=== PATIENT | male | born 1945 | race Caucasian/White ===

== ENCOUNTER 2021-03-17 12:17 | Outpatient (REF) | payer MEDICARE, SELFPAY ==
[2021-03-17 14:06] LABS: MANUAL DIFF FLAG NO
[2021-03-17 14:18] LABS: Basophils Absolute Auto 0.1 X10*3/uL (0.0-0.2); Basophils Percent Auto 0.7 % (0-2); Eosinophils Percent Auto 0.3 % (0-4); Hematocrit 42.7 % (42-52); Hemoglobin 13.9 g/dl (14.0-18.0); Imm Gran Abs Auto 0.05 X10*3/uL (0.00-0.03); Imm Gran Pct Auto 0.7 % (0.0-0.4); Lymphocytes Absolute Auto 0.9 X10*3/uL (1.2-4.9); Lymphocytes Percent Auto 12.1 % (20-40); Mean Corpuscular HGB Conc 32.6 g/dl (31.0-36.0); Mean Corpuscular Hemoglobin 28.9 pg (27.0-33.0); Mean Corpuscular Volume 88.8 fL (80-98); Mean Platelet Volume 9.7 fL (9.4-12.4); Monocytes Absolute Auto 0.6 X10*3/uL (0.1-1.2); Monocytes Percent Auto 7.6 % (2-11); Neutrophils Percent Auto 78.6 % (45-73); Platelet Count 220 X10*3/uL (160-400); Red Blood Count 4.81 X10*6/uL (4.60-5.80); Red Cell Distribution Width 14.7 % (11.0-16.0); White Blood Count 7.6 X10*3/uL (4.8-10.8)
[2021-03-17 14:29] LABS: Alanine Aminotransferase 19 U/L (0-40); Albumin Level 4.3 g/dL (3.5-5.0); Alkaline Phosphatase 82 U/L (39-117); Anion Gap 15 (12-20); Aspartate Amino Transferase 17 U/L (5-37); Bilirubin Total 0.6 mg/dL (0.0-1.0); Blood Urea Nitrogen 20 mg/dL (9-16); Carbon Dioxide 22 mmol/L (22-29); Chloride 104 mmol/L (96-108); Estimated Glomerular Filt Rate 47; Glucose Random 87 mg/dL (60-115); Sodium 137 mmol/L (135-145); Total Protein 7.3 g/dL (6.5-8.0)
[2021-03-17 14:50] LABS: Ferritin 79 ng/mL (20-250)
== END 2021-03-17 12:18 | disposition home or self-care (01) ==
LOC: HO.HMGCLDS 12:17
PROVIDERS: PCP Internal Medicine; Visit Provider Internal Medicine
DX: I42.9 Cardiomyopathy, unspecified (principal); K92.2 Gastrointestinal hemorrhage, unspecified; N18.9 Chronic kidney disease, unspecified
CPT/HCPCS: 36415; 80053; 82728; 85025

== ENCOUNTER 2021-07-14 10:38 | Outpatient (REF) | payer MEDICARE, SELFPAY ==
[2021-07-14 13:59] LABS: MANUAL DIFF FLAG NO
[2021-07-14 14:05] LABS: Basophils Percent Auto 0.6 % (0-2); Eosinophils Absolute Auto 0.1 X10*3/uL (0.0-0.4); Hematocrit 37.8 % (42-52); Imm Gran Abs Auto 0.07 X10*3/uL (0.00-0.03); Lymphocytes Absolute Auto 0.8 X10*3/uL (1.2-4.9); Lymphocytes Percent Auto 10.9 % (20-40); Mean Corpuscular HGB Conc 31.7 g/dl (31.0-36.0); Mean Corpuscular Hemoglobin 29.6 pg (27.0-33.0); Mean Corpuscular Volume 93.3 fL (80-98); Mean Platelet Volume 9.5 fL (9.4-12.4); Monocytes Absolute Auto 0.6 X10*3/uL (0.1-1.2); Monocytes Percent Auto 8.4 % (2-11); Neutrophils Absolute Auto 5.7 X10*3/uL (2.0-8.3); Neutrophils Percent Auto 78.1 % (45-73); Platelet Count 248 X10*3/uL (160-400); Red Blood Count 4.05 X10*6/uL (4.60-5.80); Red Cell Distribution Width 19.9 % (11.0-16.0); White Blood Count 7.3 X10*3/uL (4.8-10.8)
[2021-07-14 14:26] LABS: Alanine Aminotransferase 47 U/L (0-40); Albumin Level 4.2 g/dL (3.5-5.0); Alkaline Phosphatase 82 U/L (39-117); Anion Gap 18 (12-20); Aspartate Amino Transferase 34 U/L (5-37); Bilirubin Total 2.2 mg/dL (0.0-1.0); Blood Urea Nitrogen 23 mg/dL (9-16); Calcium 9.1 mg/dL (8.4-10.2); Carbon Dioxide 19 mmol/L (22-29); Chloride 106 mmol/L (96-108); Estimated Glomerular Filt Rate 41; Glucose Random 100 mg/dL (60-115); Potassium 4.6 mmol/L (3.3-5.1); Sodium 138 mmol/L (135-145); Total Protein 7.6 g/dL (6.5-8.0)
== END 2021-07-14 10:39 | disposition home or self-care (01) ==
LOC: HO.HMGCLDS 10:38
PROVIDERS: PCP Internal Medicine; Visit Provider Internal Medicine
DX: Z00.01 Encounter for general adult medical examination with abnormal findings (principal); D64.9 Anemia, unspecified; I42.9 Cardiomyopathy, unspecified; I48.91 Unspecified atrial fibrillation; N18.9 Chronic kidney disease, unspecified; T14.8XXA Other injury of unspecified body region, initial encounter
CPT/HCPCS: 36415; 80053; 85025

== ENCOUNTER → 2021-08-24 11:32 | Outpatient (BNVA) | payer MEDICARE, SELFPAY | PROVIDERS: PCP Internal Medicine; Visit Provider Urology | CPT/HCPCS: Q3014 ==

== ENCOUNTER 2022-08-13 08:48 | Outpatient (REF) | payer MEDICARE, SELFPAY ==
--- NOTE | ~2022-08-13 | US_ITS ---
EXAMINATION: US RETROPERITONEAL LIMITED (RENAL ONLY) CLINICAL INFORMATION: Cyst of kidney, acquired. COMPARISON: None TECHNIQUE: Real-time imaging of the kidneys. FINDINGS: RIGHT KIDNEY: 10.4 x 5.2 x 7.2 cm (SAG x AP x TRV). The kidney is normal in size, contour, and echogenicity. Renal cortical thickness is normal. No renal calculi or hydronephrosis. Anechoic simple appearing 6.0 x 5.7 x 6.3 cm right lower pole renal cyst. LEFT KIDNEY: 10.7 x 5.5 x 5.0 cm (SAG x AP x TRV). The kidney is normal in size, contour, and echogenicity. Renal cortical thickness is normal. No renal calculi or hydronephrosis. Small 6 x 4 x 5 mm cyst of the left mid kidney. US/US renal BI IMPRESSION: Simple bilateral renal cysts. No imaging follow-up recommended.
== END 2022-08-13 08:49 | disposition home or self-care (01) ==
LOC: HO.HMGCX 08:48
PROVIDERS: PCP Internal Medicine; Visit Provider Urology
DX: N28.1 Cyst of kidney, acquired (principal)
CPT/HCPCS: 76775

== ENCOUNTER → 2022-08-24 13:11 | Outpatient (BNVA) | payer MEDICARE, SELFPAY | PROVIDERS: PCP Internal Medicine; Visit Provider Urology | DX: N28.1 Cyst of kidney, acquired (principal) | CPT/HCPCS: 99212 ==

== ENCOUNTER 2023-01-15 07:51 | Outpatient (REF) | payer MEDICARE, SELFPAY ==
[2023-01-15 11:39] LABS: MANUAL DIFF FLAG NO
[2023-01-15 11:56] LABS: INTERNATIONAL NORM RATIO 2.4 (0.9-1.1); Prothrombin Time 28.1 SEC (10.0-13.1)
[2023-01-15 12:03] LABS: Basophils Absolute Auto 0.1 X10*3/uL (0.0-0.2); Basophils Percent Auto 1.5 % (0-2); Eosinophils Absolute Auto 0.3 X10*3/uL (0.0-0.4); Eosinophils Percent Auto 5.1 % (0-4); Hematocrit 47.1 % (42.0-52.0); Hemoglobin 15.5 g/dl (14.0-18.0); Imm Gran Abs Auto 0.02 X10*3/uL (0.00-0.03); Imm Gran Pct Auto 0.3 % (0.0-0.4); Lymphocytes Absolute Auto 1.8 X10*3/uL (1.2-4.9); Lymphocytes Percent Auto 26.7 % (20-40); Mean Corpuscular HGB Conc 32.9 g/dl (31.0-36.0); Mean Corpuscular Hemoglobin 29.4 pg (27.0-33.0); Mean Corpuscular Volume 89.2 fL (80.0-98.0); Mean Platelet Volume 10.8 fL (9.4-12.4); Monocytes Absolute Auto 0.6 X10*3/uL (0.1-1.2); Monocytes Percent Auto 8.3 % (2-11); Neutrophils Absolute Auto 3.9 x10*3/uL (2.0-8.3); Neutrophils Percent Auto 58.1 % (45-73); Platelet Count 204 X10*3/uL (160-400); Red Blood Count 5.28 X10*6/uL (4.60-5.80); Red Cell Distribution Width 14.4 % (11.0-16.0); White Blood Count 6.7 X10*3/uL (4.8-10.8)
[2023-01-15 13:04] LABS: Alanine Aminotransferase 56 U/L (0-40); Albumin Level 3.9 g/dL (3.5-5.0); Alkaline Phosphatase 84 U/L (39-117); Anion Gap 14 (12-20); Aspartate Amino Transferase 48 U/L (5-37); Blood Urea Nitrogen 20 mg/dL (9-16); Carbon Dioxide 23 mmol/L (22-29); Chloride 106 mmol/L (96-108); Cholesterol 170 mg/dL; Estimated Glomerular Filt Rate 33; Glucose Fasting 111 mg/dL (60-99); HDL Cholesterol 49 mg/dL; LDL Cholesterol Calculated 100 mg/dl; Potassium 4.2 mmol/L (3.3-5.1); Sodium 139 mmol/L (135-145); Total Protein 6.8 g/dL (6.5-8.0); Triglycerides 108 mg/dL
== END 2023-01-15 07:52 | disposition home or self-care (01) ==
LOC: HO.HMGCLDS 07:51
PROVIDERS: Absent Provider Physician Assistant Medical; PCP Internal Medicine; Visit Provider Internal Medicine
DX: D64.9 Anemia, unspecified (principal); E78.9 Disorder of lipoprotein metabolism, unspecified; I42.9 Cardiomyopathy, unspecified; I48.91 Unspecified atrial fibrillation; E78.2 Mixed hyperlipidemia; N18.9 Chronic kidney disease, unspecified; Z79.01 Long term (current) use of anticoagulants
CPT/HCPCS: 36415; 80053; 80061; 85025; 85610

== ENCOUNTER 2023-02-18 08:53 | Outpatient (REF) | payer MEDICARE, SELFPAY ==
[2023-02-18 12:24] LABS: Alanine Aminotransferase 76 U/L (0-40); Anion Gap 12 (12-20); Aspartate Amino Transferase 57 U/L (5-37); Blood Urea Nitrogen 20 mg/dL (9-16); Calcium 9.2 mg/dL (8.4-10.2); Carbon Dioxide 26 mmol/L (22-29); Chloride 105 mmol/L (96-108); Cholesterol 172 mg/dL; Estimated Glomerular Filt Rate 39; Glucose Random 109 mg/dL (60-115); HDL Cholesterol 49 mg/dL; LDL Cholesterol Calculated 102 mg/dl; Potassium 4.3 mmol/L (3.3-5.1); Sodium 139 mmol/L (135-145); Triglycerides 107 mg/dL
[2023-02-18 12:42] LABS: Thyroid Stimulating Hormone 3.04 uIU/mL (0.32-4.0)
== END 2023-02-18 08:54 | disposition home or self-care (01) ==
LOC: HO.HMGCLDS 08:53
PROVIDERS: Absent Provider Physician Assistant Medical; PCP Internal Medicine; Visit Provider Internal Medicine
DX: I48.91 Unspecified atrial fibrillation (principal); E78.2 Mixed hyperlipidemia
CPT/HCPCS: 36415; 80048; 80061; 84443; 84450; 84460

== ENCOUNTER 2023-07-19 10:40 | Outpatient (AMB) | payer MEDICARE, SELFPAY ==
--- NOTE | 2023-07-19 10:43 | A.OFFPC_ITS ---
Vital Signs 07/19/23 10:45 07/19/23 11:13 Height 5 ft 4 in Weight 225 lb 4 oz BMI 38.7 BP 110/32 L 120/42 L Blood Pressure Location Rt brachial Rt brachial Position Sitting Pulse 57 Pulse Source Pulse Oximeter Pulse Oximetry (%) 96 Oxygen Delivery Method Room Air Intake Visit Reasons: Annual Physical Allergies No Known Allergies [No Known Allergies*] Allergy (Mild, Verified 07/19/23 10:43) NONE Medication List - Last Reconciled 07/19/23 by Julissa Dooley MD amiodarone 200 mg PO DAILY atorvastatin 40 mg PO BEDTIME diltiazem HCl 180 mg PO DAILY furosemide 20 mg PO BID lisinopril 2.5 mg PO DAILY meclizine 12.5 mg PO DAILY PRN metoprolol succinate ER 100 mg PO DAILY omeprazole 20 mg PO DAILY 90 days spironolactone 12.5 mg PO DAILY warfarin 5 mg PO Q OTHER DAY Tobacco use date assessed: 07/19/23 Fall risk assessment: No Falls in past year Last assessed Fall Risk: 07/19/23 Dental Screening Dental Screen Date: 07/19/23 Did you have a dental visit in the last 12 months?: No Did you have a dental problem in the last 6 months where you did not have access to dental care?: No Was dental information given to patient?: Patient has dentist HPI Annual Physical HPI Details Patient is a 78-year-old male came in today for physical exam appointment today. Patient has appointment for renal ultrasound in July patient is seeing Dr. Hand for that I see that patient has lost about 40 lb since last 2 years he is trying to lose weight gradually. Today on physical examination patient was able to complete tandem walk as well which he failed last year Patient has a history of Chronic kidney disease stage 3 Hypertension Atrial fibrillation Ischemic cardiomyopathy Patient sees other providers Cardiology: [facility] Nephrology: Patient is seeing Dr. 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 Perry for melanoma Urologist: Dr. [place]/Dr. Hand [facility] INR managed by Cardiology All labs done through Cardiology or Nephrology office, and once a year through PCP office He had colonoscopy through Dr. Carty due for colonoscopy in 3 yrs Currently his BMI is 38.7, patient is losing weight gradually He walks with the help of cane, balance is good patient was able to pass Romberg But failed tendem walk Medication list reviewed Labs in my chart is from February of this year, patient does have elevated LFTs but stable PFSH Medical History History of GI bleed Social History Housing: House Alcohol intake: former Patient Tobacco Use Status: Former Tobacco user Quit Date: 1972 e-Cigarette/Vaping Use: Never Used Current occupational status: retired Cognitive needs: No Hearing needs: No Vision needs: Yes Questionnaire PHQ-9 Over the last 2 weeks, how often have you been bothered by any of the following problems? 1. Little interest or pleasure in doing things: not at all 2. Feeling down, depressed, or hopeless: not at all 3. Trouble falling or staying asleep, or sleeping too much: not at all 4. Feeling tired or having little energy: not at all 5. Poor appetite or overeating: not at all 6. Feeling bad about yourself - or that you are a failure or have let yourself or your family down: not at all 7. Trouble concentrating on things, such as reading the newspaper or watching television: not at all 8. Moving or speaking so slowly that other people could have noticed. Or the opposite - being so fidgety or restless that you have been moving around a lot more than usual: not at all 9. Thoughts that you would be better off or of hurting yourself in some way: not at all Total score: 0 Depression Screening Interpretation: Negative 80793 - PHQ-9 Billing: Yes Source: Developed by Drs. Shane Eid, Emily Knox, Alessandro Gonzalez and colleagues, with an educational patricia from [employer]. Thrive Questionnaire Date Thrive assessed: 07/19/23 I am a: Patient What is your living situation today?: I have a steady place to live Within the past 12 months, did the food you bought not last and you didn't have the money to get more?: Never true Within the past 12 months, did you worry whether your food would run out before you got money to buy more?: Never true Do you have trouble paying for medicines?: No Do you have trouble getting transportation to medical appointments?: No Do you have trouble paying your heating and electricity bill?: No Do you have trouble taking care of your child, family member or friend?: No Do you have trouble with day-to-day activities such as bathing, preparing meals, shopping, managing finances, etc.?: No Are you currently unemployed and looking for a job?: No Are you interested in more education?: No AUDIT C Alcohol Use Questionnaire (AUDIT-C) 1. How often do you have a drink containing alcohol?: Never 3. How often do you have six or more drinks on one occasion?: Never Total Score: 0 Score Reviewed/Action Taken: Yes DYLLAN-7 AMB Questionnaire DYLLAN-7 Date DYLLAN - 7 assessed: 07/19/23 Feeling nervous, anxious, or on edge: 0 = Not at all Not being able to stop or control worryin = Not at all Worrying too much about different things: 0 = Not at all Trouble relaxin = Not at all Being so restless that it is hard to sit still: 0 = Not at all Becoming easily annoyed or irritable: 0 = Not at all Feeling afraid as if something awful might happen: 0 = Not at all Total YDLLAN-7 score (0-4 normal; 5-9 mild; 10-14 moderate; 15-21 severe): 0 Source: Developed by Drs. Shane Eid, Emily Knox, Alessandro Gonzalez and colleagues, with an educational patricia from [employer]. DYLLAN-7 Assessment Billing DYLLAN-7 Assessment Tool: DYLLAN-7 Assessment [id number] Review of Systems Const Denies chills, Denies fever(s) and Denies headache(s) Eyes Denies blurry vision ENT Denies headache(s), Denies nasal discharge, Denies nasal obstruction, Denies odynophagia and Denies sinus pain Card Denies chest pain at rest and Denies chest pain with activity Resp Denies cough and Denies hemoptysis GI Denies diarrhea, Denies odynophagia, Denies vomiting and Denies hematemesis Reports as per HPI Musc Denies abnormal gait Skin/Breast Reports as per HPI Neuro Denies Neuro-related abnormal movements, Denies Abnormal speech present, Denies abnormal gait and Denies headache(s) Psych Denies mood swings and Denies paranoia Endo Reports as per HPI Edson/Lymph Reports as per HPI Aller/Immun Reports as per HPI Physical exam (Primary Care) Vital Signs: Last Vital Signs Pulse 57 07/19/23 10:45 BP 120/42 L 07/19/23 11:13 Pulse Ox 96 07/19/23 10:45 Oxygen Delivery Method Room Air 07/19/23 10:45 BMI result Body Mass Index 38.7 Tobacco/Smoking Status: Tobacco use Status Tobacco use date assessed 07/19/23 07/19/23 10:51 Patient Tobacco Use Status Former Tobacco user 07/19/23 10:51 e-Cigarette/Vaping Use Never Used 07/19/23 10:51 Depression Screening Interpretation: Negative Thrive Assessment: Date of Thrive Assessment Date Thrive assessed 07/17/22 07/19/23 10:51 Const General: cooperative, comfortable and no acute distress Orientation/consciousness: patient oriented x3 HENMT Head: Yes normocephalic and Yes atraumatic Eyes General: appearance normal, both eyes and all related structures Pupils: Equal, round and reactive pupils present EOM: EOMs intact bilaterally Neck Neck: Yes supple and No lymphadenopathy Thyroid: Thyroid normal Lymphatic: no lymphadenopathy noted Resp Effort & Inspection: normal respiratory effort and able to speak in complete sentences Auscultation: clear to auscultation bilaterally Cardio Heart sounds: S1 normal heart sound present and S2 normal heart sound present GI Palpation (GI): Soft to palpation and nontender Auscultation: normal bowel sounds General: Yes no CVA tenderness Back/Spine/Pelvis Back: no CVA tenderness Skin General skin exam: elasticity normal and turgor normal Neuro General: patient oriented x3 and gait normal Cranial nerves: Yes Equal, round and reactive pupils present Speech: No Abnormal speech present Coordination: tandem gait normal and Romberg test negative Extrem General: Yes normal exam except as noted and No edema Assessment and Plan Assessment & Plan (1) Encounter for general adult medical examination with abnormal findings: Code(s): Z00.01 - Encounter for general adult medical examination with abnormal findings (2) Chronic kidney disease, stage 4 (severe): Code(s): N18.4 - Chronic kidney disease, stage 4 (severe) (3) Lipid disorder: Code(s): E78.9 - Disorder of lipoprotein metabolism, unspecified (4) Cardiomyopathy: Code(s): I42.9 - Cardiomyopathy, unspecified Qualifiers: Cardiomyopathy type: other Qualified Code(s): I42.8 - Other cardiomyopathies Plan Patient is a 78-year-old male came in today for physical exam appointment today. Patient has appointment for renal ultrasound in July patient is seeing Dr. Hand for that I see that patient has lost about 40 lb since last 2 years he is trying to lose weight gradually. Today on physical examination patient was able to complete tandem walk as well which he failed last year Patient has a history of Chronic kidney disease stage 3 Hypertension Atrial fibrillation Ischemic cardiomyopathy Patient sees other providers Cardiology: Patient is seeing Dr. Roth [facility] Nephrology: Patient is seeing Dr. 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 Perry for melanoma Urologist: Dr. [place]/Dr. Hand [facility] INR managed by Cardiology All labs done through Cardiology or Nephrology office, and once a year through PCP office He had colonoscopy through Dr. Carty due for colonoscopy in 3 yrs Currently his BMI is 38.7, patient is losing weight gradually He walks with the help of cane, balance is good patient was able to pass Romberg But failed tendem walk Medication list reviewed Labs in my chart is from February of this year, patient does have elevated LFTs but stable Orders: Orders Vitamin B12 Today E78.9 - Disorder of lipoprotein metabolism, unspecified, I42.9 - Cardiomyopathy, unspecified, N18.4 - Chronic kidney disease, stage 4 (severe), Z00.01 - Encounter for general adult medical examination with abnormal findings Complete Blood Count Auto Diff Today E78.9 - Disorder of lipoprotein metabolism, unspecified, I42.9 - Cardiomyopathy, unspecified, N18.4 - Chronic kidney disease, stage 4 (severe), Z00.01 - [facility] Comprehensive [place]. Panel Fast Today E78.9 - Disorder of lipoprotein metabolism, unspecified, I42.9 - Cardiomyopathy, unspecified, N18.4 - Chronic kidney disease, stage 4 (severe), Z00.01 - Encounter for general adult medical examination with abnormal findings Lipid Panel Today E78.9 - Disorder of lipoprotein metabolism, unspecified, I42.9 - Cardiomyopathy, unspecified, N18.4 - Chronic kidney disease, stage 4 (severe), Z00.01 - Encounter for general adult medical examination with abnormal findings Vitamin D 25-OH (D2 and D3) Today E78.9 - Disorder of lipoprotein metabolism, unspecified, I42.9 - Cardiomyopathy, unspecified, N18.4 - Chronic kidney disease, stage 4 (severe), Z00.01 - Encounter for general adult medical examination with abnormal findings Coding Level of Care Code Est Pt Prev Care >65y(61133) Diagnoses Encounter for general adult medical examination with abnormal findings Z00.01 Chronic kidney disease, stage 4 (severe) N18.4 Lipid disorder E78.9 Other cardiomyopathy I42.8 Cardiomyopathy type: other Additional Codes DYLLAN-7 Assessment Billing - DYLLAN-7 Assessment Tool: DYLLAN-7 Assessment [id number] ([id number])
[2023-07-19 10:45] VITALS: BP 110/32; PULSE 57; O2SAT 96; BMI 38.7
[2023-07-19 11:13] VITALS: BP 120/42
== END 2023-07-19 11:15 | disposition home or self-care (01) ==
PROVIDERS: Visit Provider Internal Medicine
DX: Z00.00 Encounter for general adult medical examination without abnormal findings (principal); N18.4 Chronic kidney disease, stage 4 (severe); E78.9 Disorder of lipoprotein metabolism, unspecified; I42.8 Other cardiomyopathies
CPT/HCPCS: 99397

== ENCOUNTER 2023-08-14 08:12 | Outpatient (REF) | payer MEDICARE, SELFPAY ==
--- NOTE | ~2023-08-14 | US_ITS ---
EXAMINATION: US RETROPERITONEAL LIMITED (RENAL ONLY) CLINICAL INFORMATION: Cyst of kidney, acquired. COMPARISON: Renal ultrasound 08/13/2022. TECHNIQUE: Real-time imaging of the kidneys. FINDINGS: RIGHT KIDNEY: 10.2 x 5.3 x 5.0 cm (SAG x AP x TRV). The kidney is normal in size, contour, and echogenicity. Renal cortical thickness is normal. No renal calculi or hydronephrosis. There is a 6.8 x 5.9 x 6.4 cm cyst lower pole right kidney. LEFT KIDNEY: 10.6 x 5.2 x 4.8 cm (SAG x AP x TRV). The kidney is normal in size, contour, and echogenicity. Renal cortical thickness is normal. No calculi or focal parenchymal lesions. No hydronephrosis. US/US renal BI IMPRESSION: 6.8 x 5.9 x 6.4 cm cyst lower pole right kidney previously measured 6 x 5.7 x 6.3 cm. The previously noted subcentimeter cyst left kidney is no longer seen. No renal calculi or hydronephrosis.
[2023-08-14 11:43] LABS: MANUAL DIFF FLAG NO
[2023-08-14 12:07] LABS: Basophils Absolute Auto 0.1 X10*3/uL (0.0-0.2); Basophils Percent Auto 0.9 % (0-2); Eosinophils Percent Auto 0.2 % (0-4); Hematocrit 44.5 % (42.0-52.0); Hemoglobin 14.6 g/dl (14.0-18.0); Imm Gran Abs Auto 0.02 X10*3/uL (0.00-0.03); Imm Gran Pct Auto 0.4 % (0.0-0.4); Lymphocytes Absolute Auto 1.2 X10*3/uL (1.2-4.9); Lymphocytes Percent Auto 22.2 % (20-40); Mean Corpuscular HGB Conc 32.8 g/dl (31.0-36.0); Mean Corpuscular Hemoglobin 29.6 pg (27.0-33.0); Mean Corpuscular Volume 90.1 fL (80.0-98.0); Mean Platelet Volume 10.7 fL (9.4-12.4); Monocytes Absolute Auto 0.5 X10*3/uL (0.1-1.2); Monocytes Percent Auto 8.8 % (2-11); Neutrophils Absolute Auto 3.7 x10*3/uL (2.0-8.3); Neutrophils Percent Auto 67.5 % (45-73); Platelet Count 189 X10*3/uL (160-400); Red Blood Count 4.94 X10*6/uL (4.60-5.80); Red Cell Distribution Width 14.2 % (11.0-16.0); White Blood Count 5.5 X10*3/uL (4.8-10.8)
[2023-08-14 12:31] LABS: Alanine Aminotransferase 46 U/L (0-40); Albumin Level 3.8 g/dL (3.5-5.0); Alkaline Phosphatase 69 U/L (39-117); Aspartate Amino Transferase 44 U/L (5-37); Bilirubin Direct 0.4 mg/dL (0.0-0.5); Bilirubin Total 1.1 mg/dL (0.0-1.0); Total Protein 7.1 g/dL (6.5-8.0)
[2023-08-14 12:34] LABS: Alanine Aminotransferase 46 U/L (0-40); Albumin Level 3.8 g/dL (3.5-5.0); Alkaline Phosphatase 67 U/L (39-117); Anion Gap 13 (12-20); Aspartate Amino Transferase 45 U/L (5-37); Bilirubin Total 1.1 mg/dL (0.0-1.0); Blood Urea Nitrogen 26 mg/dL (9-16); Calcium 9.4 mg/dL (8.4-10.2); Carbon Dioxide 26 mmol/L (22-29); Chloride 104 mmol/L (96-108); Cholesterol 173 mg/dL (<200); Estimated Glomerular Filt Rate 45; Glucose Fasting 97 mg/dL (60-99); HDL Cholesterol 51 mg/dL (>40); LDL Cholesterol Calculated 102 mg/dL (<100); Potassium 4.4 mmol/L (3.3-5.1); Sodium 139 mmol/L (135-145); Total Protein 7.2 g/dL (6.5-8.0); Triglycerides 102 mg/dL (<150)
[2023-08-14 12:56] LABS: Vitamin B12 512 pg/mL (200-900)
[2023-08-18 16:59] LABS: Vitamin D 25-OH, D2 <4 ng/mL; Vitamin D 25-OH, D3 29 ng/mL; Vitamin D 25-OH, Total 29 ng/mL (30-100)
== END 2023-08-14 08:13 | disposition home or self-care (01) ==
LOC: HO.HMGCX 08:12
PROVIDERS: Physician Assistant Medical; PCP Internal Medicine; Visit Provider Urology
DX: Z00.01 Encounter for general adult medical examination with abnormal findings (principal); N18.4 Chronic kidney disease, stage 4 (severe); E78.9 Disorder of lipoprotein metabolism, unspecified; I42.9 Cardiomyopathy, unspecified; N28.1 Cyst of kidney, acquired; E78.2 Mixed hyperlipidemia
CPT/HCPCS: 36415; 76775; 80053; 80061; 80076; 82248; 82306; 82607; 85025

== ENCOUNTER 2023-08-23 08:36 | Outpatient (AMB) | payer MEDICARE, SELFPAY ==
--- NOTE | 2023-08-23 08:40 | MHC.OFFVIS ---
Intake Intake Visit Reasons: 1YR US(set) Intake Note: Patient is Present for Telephone Follow Up Urology Med: None Antibiotic Allergy:None Blood Thinner: Warfarin Pharamcy: [employer] [facility] Allergies No Known Allergies [No Known Allergies*] Allergy (Mild, Verified 07/19/23 10:43) NONE HPI HPI Comments History of Present Illness Details Tee is a pleasant male. He is a patient of Dr. Dooley. He is seen for the following urologic conditions - lower urinary tract symptoms - renal cyst Telemedicine Evaluation 15 min Consultation [facility] Video attempted Stable renal cyst Effective emptying Follow PRN Renal cyst Followed for renal cyst Imaging - 07/11 CT right 5 cm renal cyst, 3 mm stone in gallbladder - 07/12 U/S right renal cyst stable - 07/13 Renal US right renal cyst stable Urinating well Good stream and effective emptying PRN PFSH Medical History History of GI bleed Social History Housing: House Alcohol intake: former Patient Tobacco Use Status: Former Tobacco user Quit Date: 1972 e-Cigarette/Vaping Use: Never Used Current occupational status: retired Cognitive needs: No Hearing needs: No Vision needs: Yes Review of Systems Const All systems reviewed & are unremarkable except as noted in HPI and below Reports no additional complaints Resp Reports no additional complaints GI Reports no additional complaints Reports as per HPI Musc Reports no additional complaints Physical Exam Telemedicine evaluation Appropriate responses Regular breathing rate and rhythm HEENT Head: Yes normal to inspection Ears: hearing grossly normal bilaterally Eyes General: appearance normal, both eyes and all related structures Neck Neck: Yes normal visual inspection Chest Chest palpation & inspection: normal inspection of the chest Resp Effort & Inspection: normal respiratory effort and able to speak in complete sentences Assessment & Plan Assessment & Plan (1) Renal cyst: Comment: Left 5.5 cm Code(s): N28.1 - Cyst of kidney, acquired Plan PRN Patient Instructions: Imaging studies, laboratory and physical exam results were discussed and reviewed in detail. No major barriers to patient understanding were identified. An opportunity to ask questions regarding the treatment plan was provided. All questions were answered. The patient expressed understanding and agreement with the above treatment plan. The patient is aware they should contact our office by phone for worsening of their current condition or the appearance of new urologic symptoms. Compliance is encouraged with any medications and followup testing that is ordered. It is a privilege to participate in the urologic care of your patient. If you have any questions or concerns regarding treatment for the above conditions, or other urologic issues, please do not hesitate to contact me. The office telephone contact is [phone]. This note is constructed using voice recognition software. While every effort has been made to ensure accuracy sales administrator errors may have been included. Yours sincerely, Dr Preston Hand MD, [facility] - Urology Providers of Expert, Compassionate Care for the Genitourinary System Telehealth Telehealth Location of provider rendering services: practice address Location of patient: address on file Patient Identification confirmed using: Name, : Yes Telehealth method: video Patient verbally consented to treatment: Yes Patient verbally consented to billing insurance company: Yes Patient informed of any privacy concerns related to visit: Yes Coding Level of Care Code Tele Est Pt Level 3 (63411) Diagnoses Renal cyst N28.1
== END 2023-08-23 09:23 | disposition home or self-care (01) ==
LOC: HO.HUSH 08:36
PROVIDERS: PCP Internal Medicine; Visit Provider Urology
DX: N28.1 Cyst of kidney, acquired (principal)
CPT/HCPCS: 99213

== ENCOUNTER → 2023-08-23 08:36 | Outpatient (BNVA) | payer MEDICARE, SELFPAY | PROVIDERS: PCP Internal Medicine; Visit Provider Urology ==

== ENCOUNTER 2024-08-05 10:19 | Outpatient (AMB) | payer MEDICARE, SELFPAY ==
[2024-08-05 10:22] VITALS: BP 130/54; PULSE 64; O2SAT 96; BMI 43.1
--- NOTE | 2024-08-05 10:22 | MHC.PC.OV ---
Vital Signs 08/05/24 10:22 Height 5 ft 4 in Weight 251 lb 4 oz BMI 43.1 BP 130/54 L Blood Pressure Location Rt brachial Position Sitting Pulse 64 Pulse Source Pulse Oximeter Pulse Oximetry (%) 96 Oxygen Delivery Method Room Air Intake Visit Reasons: Annual PE Allergies No Known Allergies [No Known Allergies*] Allergy (Mild, Verified 08/05/24 10:22) NONE Medication List - Last Reconciled 08/05/24 by Julissa Dooley MD amiodarone 200 mg PO DAILY atorvastatin 40 mg PO BEDTIME diltiazem HCl CD 180 mg PO DAILY furosemide 20 mg PO BID lisinopril 2.5 mg PO DAILY meclizine 12.5 mg PO DAILY PRN metoprolol succinate ER 100 mg PO DAILY omeprazole 20 mg PO DAILY 90 days spironolactone 12.5 mg PO DAILY warfarin 5 mg PO Q OTHER DAY Tobacco use date assessed: 08/05/24 Last assessed Fall Risk: 08/05/24 Dental Screening Dental Screen Date: 08/05/24 Did you have a dental visit in the last 12 months?: Yes Did you have a dental problem in the last 6 months where you did not have access to dental care?: No Was dental information given to patient?: Yes HPI Annual PE HPI Details Patient is a 79-year-old male came in today for physical exam appointment today. Nephropathy, patient is seeing Dr. Hand last time he had labs last year his kidney function has improved slightly Has gained weight back since last year BMI is 43.1 patient is morbidly obese Patient has a history of Chronic kidney disease stage 3 Hypertension Atrial fibrillation Ischemic cardiomyopathy Patient sees other providers [facility]: [facility] Nephrology: Patient is seeing Dr. Fowler at [facility] office Director Pharmacology: Dr. Perry for melanoma Urologist: Dr. Birmingham/Dr. Hand [facility] INR managed by Cardiology All labs done through Cardiology or Nephrology office, and once a year through PCP office He had colonoscopy through Dr. Machelle rouse for colonoscopy in 2 yrs Medication list reviewed Lab order placed to be done today Follow-up 1 year physical exam, no medication from PCP office COUNTS INCLUDE 234 BEDS AT THE [facility] Medical History History of GI bleed Social History Housing: House Alcohol intake: former Patient Tobacco Use Status: Former Tobacco user e-Cigarette/Vaping Use: Never Used Current occupational status: retired Cognitive needs: No Hearing needs: No Vision needs: Yes Questionnaire PHQ-9 Over the last 2 weeks, how often have you been bothered by any of the following problems? 1. Little interest or pleasure in doing things: not at all 2. Feeling down, depressed, or hopeless: not at all 3. Trouble falling or staying asleep, or sleeping too much: not at all 4. Feeling tired or having little energy: not at all 5. Poor appetite or overeating: not at all 6. Feeling bad about yourself - or that you are a failure or have let yourself or your family down: not at all 7. Trouble concentrating on things, such as reading the newspaper or watching television: not at all 8. Moving or speaking so slowly that other people could have noticed. Or the opposite - being so fidgety or restless that you have been moving around a lot more than usual: not at all 9. Thoughts that you would be better off or of hurting yourself in some way: not at all Total score: 0 Depression Screening Interpretation: Negative Depression Screening Done: Yes 87793 - PHQ-9 Billing: Yes Source: Developed by Drs. Shane Eid, Emily Knox, Alessandro Gonzalez and colleagues, with an educational patricia from [employer]. Thrive Questionnaire Date Thrive assessed: 08/05/24 I am a: Patient What is your living situation today?: I have a steady place to live Within the past 12 months, did the food you bought not last and you didn't have the money to get more?: Never true Within the past 12 months, did you worry whether your food would run out before you got money to buy more?: Never true Do you have trouble paying for medicines?: No Do you have trouble getting transportation to medical appointments?: No Do you have trouble paying your heating and electricity bill?: No Do you have trouble taking care of your child, family member or friend?: No Do you have trouble with day-to-day activities such as bathing, preparing meals, shopping, managing finances, etc.?: No Are you currently unemployed and looking for a job?: No Are you interested in more education?: No Please select the resources that you would like help with: None Currently or been in a relationship where the following occur: No concerns reported THRIVE Score: 0 AUDIT C Alcohol Use Questionnaire (AUDIT-C) 1. How often do you have a drink containing alcohol?: Never 3. How often do you have six or more drinks on one occasion?: Never Total Score: 0 Score Reviewed/Action Taken: Yes DYLLAN-7 AMB Questionnaire DYLLAN-7 Date DYLLAN - 7 assessed: 08/05/24 Feeling nervous, anxious, or on edge: 0 = Not at all Not being able to stop or control worryin = Not at all Worrying too much about different things: 0 = Not at all Trouble relaxin = Not at all Being so restless that it is hard to sit still: 0 = Not at all Becoming easily annoyed or irritable: 0 = Not at all Feeling afraid as if something awful might happen: 0 = Not at all Total DYLLAN-7 score (0-4 normal; 5-9 mild; 10-14 moderate; 15-21 severe): 0 Source: Developed by Drs. Shane Eid, Emily Knox, Alessandro Gonzalez and colleagues, with an educational patricia from [employer]. DYLLAN-7 Assessment Billing DYLLAN-7 Assessment Tool: DYLLAN-7 Assessment [id number] Review of Systems Const Denies chills, Denies fever(s) and Denies headache(s) Eyes Denies blurry vision ENT Denies headache(s), Denies nasal discharge, Denies nasal obstruction, Denies odynophagia and Denies sinus pain Card Denies chest pain at rest and Denies chest pain with activity Resp Denies cough and Denies hemoptysis GI Denies odynophagia, Denies vomiting and Denies hematemesis Reports as per HPI Skin/Breast Reports as per HPI Neuro Denies Neuro-related abnormal movements, Denies Abnormal speech present, Denies headache(s) and Denies Sensory deficit (Neuro) Psych Denies mood swings and Denies paranoia Endo Reports as per HPI Edson/Lymph Reports as per HPI Aller/Immun Reports as per HPI Physical exam (Primary Care) Vital Signs: Last Vital Signs Pulse 64 08/05/24 10:22 BP 130/54 L 08/05/24 10:22 Pulse Ox 96 08/05/24 10:22 Oxygen Delivery Method Room Air 08/05/24 10:22 BMI result Body Mass Index 43.1 Tobacco/Smoking Status: Tobacco use Status Tobacco use date assessed 08/05/24 08/05/24 10:29 Patient Tobacco Use Status Former Tobacco user 08/05/24 10:29 e-Cigarette/Vaping Use Never Used 08/05/24 10:29 PHQ-9: PHQ-9 Score PHQ-9: Total score 0 08/05/24 10:34 Depression Screening Interpretation: Negative Thrive Assessment: Date of Thrive Assessment Date Thrive assessed 08/05/24 08/05/24 10:29 Currently or been in a relationship where the following occur: No concerns reported Const General: cooperative, comfortable and no acute distress Orientation/consciousness: patient oriented x3 HENMT Head: Yes normocephalic and Yes atraumatic Eyes Pupils: Equal, round and reactive pupils present EOM: EOMs intact bilaterally Neck Neck: Yes supple and No lymphadenopathy Thyroid: Thyroid normal Lymphatic: no lymphadenopathy noted Resp Effort & Inspection: normal respiratory effort and able to speak in complete sentences Auscultation: clear to auscultation bilaterally Cardio Heart sounds: S1 normal heart sound present and S2 normal heart sound present GI Palpation (GI): Soft to palpation and nontender Auscultation: normal bowel sounds General: Yes no CVA tenderness Back/Spine/Pelvis Back: no CVA tenderness Skin General skin exam: elasticity normal and turgor normal Neuro Other: Uses cane as ambulatory aid General: patient oriented x3 and gait normal Cranial nerves: Yes Equal, round and reactive pupils present Speech: No Abnormal speech present Sensory Exam: No Sensory deficit (Neuro) Coordination: Romberg test negative Extrem General: Yes normal exam except as noted and No edema Coding Level of Care Code Est Pt Level 3 (49209) Est Pt Prev Care >65y(24556) Diagnoses Encounter for general adult medical examination with abnormal findings Z00.01 Other cardiomyopathy I42.8 Cardiomyopathy type: other Anemia in other chronic diseases classified elsewhere D63.8 Anemia type: other cause Other causes of anemia: chronic disease, other Chronic kidney disease, stage 4 (severe) N18.4 Lipid disorder E78.9 Morbid obesity due to excess calories E66.01 Additional Codes DYLLAN-7 Assessment Billing - DYLLAN-7 Assessment Tool: DYLLAN-7 Assessment 16215 ([id number]) Assessment & Plan Assessment & Plan (1) Encounter for general adult medical examination with abnormal findings: Code(s): Z00.01 - Encounter for general adult medical examination with abnormal findings Category: Medical (2) Cardiomyopathy: Code(s): I42.9 - Cardiomyopathy, unspecified Category: Medical Qualifiers: Cardiomyopathy type: other Qualified Code(s): I42.8 - Other cardiomyopathies (3) Anemia: Code(s): D64.9 - Anemia, unspecified Category: Medical Qualifiers: Anemia type: other cause Other causes of anemia: chronic disease, other Qualified Code(s): D63.8 - Anemia in other chronic diseases classified elsewhere (4) Chronic kidney disease, stage 4 (severe): Code(s): N18.4 - Chronic kidney disease, stage 4 (severe) Category: Medical (5) Lipid disorder: Code(s): E78.9 - Disorder of lipoprotein metabolism, unspecified Category: Medical (6) Morbid obesity due to excess calories: Code(s): E66.01 - Morbid (severe) obesity due to excess calories Category: Medical Plan Patient is a 79-year-old male came in today for physical exam appointment today. Nephropathy, patient is seeing Dr. Hand last time he had labs last year his kidney function has improved slightly Has gained weight back since last year BMI is 43.1 patient is morbidly obese Patient has a history of Chronic kidney disease stage 3 Hypertension Atrial fibrillation Ischemic cardiomyopathy Patient sees other providers Cardiology: Patient is seeing Dr. Roth [facility] Nephrology: Patient is seeing Dr. Fowler at [facility] office Director Pharmacology: Dr. Perry for melanoma Urologist: Dr. Birmingham/Dr. Hand [facility] INR managed by Cardiology All labs done through Cardiology or Nephrology office, and once a year through PCP office He had colonoscopy through Dr. Carty due for colonoscopy in 2 yrs Medication list reviewed Lab order placed to be done today Follow-up 1 year physical exam, no medication from PCP office Orders: Orders LDL Cholesterol Direct Today D64.9 - Anemia, unspecified, E66.01 - Morbid (severe) obesity due to excess calories, E78.9 - Disorder of lipoprotein metabolism, unspecified, I42.8 - Other cardiomyopathies, N18.4 - Chronic kidney disease, stage 4 (severe), Z00.01 - Encounter for general adult medical examination with abnormal findings Vitamin D 25-OH (D2 and D3) Today D64.9 - Anemia, unspecified, E66.01 - Morbid (severe) obesity due to excess calories, E78.9 - Disorder of lipoprotein metabolism, unspecified, I42.8 - Other cardiomyopathies, N18.4 - Chronic kidney disease, stage 4 (severe), Z00.01 - Encounter for general adult medical examination with abnormal findings Microalbumin, Random (w Creat) Today N18.4 - Chronic kidney disease, stage 4 (severe) Complete Blood Count Auto Diff Today D64.9 - Anemia, unspecified, E66.01 - Morbid (severe) obesity due to excess calories, E78.9 - Disorder of lipoprotein metabolism, unspecified, I42.8 - Other cardiomyopathies, N18.4 - Chronic kidney disease, stage 4 (severe), Z00.01 - Encounter for general adult medical examination with abnormal findings Comprehensive Met. Panel Today D64.9 - Anemia, unspecified, E66.01 - Morbid (severe) obesity due to excess calories, E78.9 - Disorder of lipoprotein metabolism, unspecified, I42.8 - Other cardiomyopathies, N18.4 - Chronic kidney disease, stage 4 (severe), Z00.01 - Encounter for general adult medical examination with abnormal findings Vitamin B12 Today D64.9 - Anemia, unspecified, E66.01 - Morbid (severe) obesity due to excess calories, E78.9 - Disorder of lipoprotein metabolism, unspecified, I42.8 - Other cardiomyopathies, N18.4 - Chronic kidney disease, stage 4 (severe), Z00.01 - Encounter for general adult medical examination with abnormal findings TSH reflex Free T4 Today D64.9 - Anemia, unspecified, E66.01 - Morbid (severe) obesity due to excess calories, E78.9 - Disorder of lipoprotein metabolism, unspecified, I42.8 - Other cardiomyopathies, N18.4 - Chronic kidney disease, stage 4 (severe), Z00.01 - Encounter for general adult medical examination with abnormal findings
== END 2024-08-05 10:47 | disposition home or self-care (01) ==
PROVIDERS: PCP Internal Medicine; Visit Provider Internal Medicine
DX: Z00.01 Encounter for general adult medical examination with abnormal findings (principal); I42.8 Other cardiomyopathies; N18.4 Chronic kidney disease, stage 4 (severe); Z68.41 Body mass index [BMI] 40.0-44.9, adult; E66.813 Obesity, class 3; D63.8 Anemia in other chronic diseases classified elsewhere; E78.9 Disorder of lipoprotein metabolism, unspecified

== ENCOUNTER → 2024-08-05 10:19 | Outpatient (BNVA) | payer MEDICARE, SELFPAY | PROVIDERS: PCP Internal Medicine; Visit Provider Internal Medicine | DX: Z00.01 Encounter for general adult medical examination with abnormal findings (principal); I42.8 Other cardiomyopathies; D63.8 Anemia in other chronic diseases classified elsewhere; N18.4 Chronic kidney disease, stage 4 (severe); E78.9 Disorder of lipoprotein metabolism, unspecified; E66.01 Morbid (severe) obesity due to excess calories; Z68.41 Body mass index [BMI] 40.0-44.9, adult; Z71.3 Dietary counseling and surveillance | CPT/HCPCS: 96127; 99397 ==

== ENCOUNTER 2024-08-10 08:51 | Outpatient (REF) | payer MEDICARE, SELFPAY ==
[2024-08-10 10:06] LABS: MANUAL DIFF FLAG NO
[2024-08-10 10:14] LABS: Appearance Urine Clear; Color Urine Yellow; Glucose Urine UA Negative (Negative); Leukocyte Esterase Urine Negative (Negative); Nitrite Urine Negative (Negative); PH 5.5 (5.0-9.0); Urine Blood Negative (Negative); Urine Ketones Negative (Negative); Urine Protein Negative (Neg-Trace)
[2024-08-10 10:21] LABS: Bacteria Urine 1+ (None Seen); Hyaline Casts Urine 0-2 /LPF (0-2); RBC Urine 0-2 /HPF (0-2); Squamous Epithelial Cell Urine 0-2 /HPF (0-2); WBC Urine 0-5 /HPF (0-5)
[2024-08-10 10:32] LABS: Creatinine Urine 130.14 mg/dL; Microalbumin Urine < 5.0 mg/L; Protein/Creatinine Ratio, Ur 0.08 (<0.2); Total Protein Urine Random 10 mg/dL (<12)
[2024-08-10 10:33] LABS: Creatinine Urine 130.18 mg/dL; Microalbumin Urine < 5.0 mg/L
[2024-08-10 10:33] LABS: Basophils Percent Auto 0.8 % (0-2); Eosinophils Percent Auto 0.2 % (0-4); Hematocrit 41.7 % (42.0-52.0); Hemoglobin 13.9 g/dl (14.0-18.0); Imm Gran Abs Auto 0.03 X10*3/uL (0.00-0.03); Imm Gran Pct Auto 0.6 % (0.0-0.4); Lymphocytes Percent Auto 19.5 % (20-40); Mean Corpuscular HGB Conc 33.3 g/dl (31.0-36.0); Mean Corpuscular Hemoglobin 29.6 pg (27.0-33.0); Mean Corpuscular Volume 88.9 fL (80.0-98.0); Mean Platelet Volume 10.2 fL (9.4-12.4); Monocytes Absolute Auto 0.4 X10*3/uL (0.1-1.2); Monocytes Percent Auto 7.7 % (2-11); Neutrophils Absolute Auto 3.7 x10*3/uL (2.0-8.3); Neutrophils Percent Auto 71.2 % (45-73); Platelet Count 167 X10*3/uL (160-400); Red Blood Count 4.69 X10*6/uL (4.60-5.80); Red Cell Distribution Width 13.4 % (11.0-16.0); White Blood Count 5.2 X10*3/uL (4.8-10.8)
[2024-08-10 10:35] LABS: Hematocrit 41.7 % (42.0-52.0); Hemoglobin 13.9 g/dl (14.0-18.0); Mean Corpuscular HGB Conc 33.3 g/dl (31.0-36.0); Mean Corpuscular Hemoglobin 29.6 pg (27.0-33.0); Mean Corpuscular Volume 88.9 fL (80.0-98.0); Mean Platelet Volume 10.2 fL (9.4-12.4); Platelet Count 167 X10*3/uL (160-400); Red Blood Count 4.69 X10*6/uL (4.60-5.80); Red Cell Distribution Width 13.4 % (11.0-16.0); White Blood Count 5.2 X10*3/uL (4.8-10.8)
[2024-08-10 10:55] LABS: Phosphorus 2.6 mg/dL (2.7-4.5)
[2024-08-10 10:56] LABS: Albumin Level 3.7 g/dL (3.5-5.0); Alkaline Phosphatase 62 U/L (39-117); Anion Gap 13 (12-20); Blood Urea Nitrogen 27 mg/dL (9-16); Calcium 8.9 mg/dL (8.4-10.2); Carbon Dioxide 22 mmol/L (22-29); Chloride 108 mmol/L (96-108); Estimated Glomerular Filt Rate 39; Glucose Random 102 mg/dL (60-115); Sodium 139 mmol/L (135-145)
[2024-08-10 10:57] LABS: Parathyroid Hormone Intact 175.7 pg/mL (8.7-77.1)
[2024-08-10 11:09] LABS: Vitamin D 25-OH Total 38.7 ng/mL (>30)
[2024-08-10 11:11] LABS: TSH reflex Free T4 1.89 uIU/mL (0.32-4.0)
[2024-08-10 11:44] LABS: Vitamin B12 500 pg/mL (200-900)
[2024-08-10 12:36] LABS: Alanine Aminotransferase 22 U/L (0-40); Aspartate Amino Transferase 40 U/L (5-37)
[2024-08-11 22:23] LABS: LDL Cholesterol Direct 87 mg/dL (<100)
[2024-08-15 12:27] LABS: Vitamin D 25-OH, D2 <4 ng/mL; Vitamin D 25-OH, D3 29 ng/mL; Vitamin D 25-OH, Total 29 ng/mL (30-100)
== END 2024-08-10 08:52 | disposition home or self-care (01) ==
LOC: HO.HMGCLDS 08:51
PROVIDERS: PCP Internal Medicine; Referring Provider Internal Medicine Nephrology; Visit Provider Internal Medicine
DX: N18.32 Chronic kidney disease, stage 3b (principal); N25.0 Renal osteodystrophy; N18.9 Chronic kidney disease, unspecified; I50.9 Heart failure, unspecified; I13.0 Hypertensive heart and chronic kidney disease with heart failure and stage 1 through stage 4 chronic kidney disease, or unspecified chronic kidney disease; I10 Essential (primary) hypertension
CPT/HCPCS: 36415; 80053; 81001; 82043; 82306; 82570; 82607; 83721; 83735; 83970; 84100; 84156; 84443; 85025; 85027; 87086; 87088; 87186

== ENCOUNTER 2025-03-31 09:11 | Outpatient (REF) | payer MEDICARE, SELFPAY ==
[2025-03-31 13:18] LABS: MANUAL DIFF FLAG NO
[2025-03-31 13:47] LABS: Basophils Absolute Auto 0.1 X10*3/uL (0.0-0.2); Basophils Percent Auto 0.9 % (0-2); Eosinophils Absolute Auto 0.1 X10*3/uL (0.0-0.4); Eosinophils Percent Auto 1.6 % (0-4); Hematocrit 43.5 % (42.0-52.0); Hemoglobin 14.5 g/dl (14.0-18.0); Imm Gran Abs Auto 0.03 X10*3/uL (0.00-0.03); Imm Gran Pct Auto 0.4 % (0.0-0.4); Lymphocytes Absolute Auto 1.1 X10*3/uL (1.2-4.9); Lymphocytes Percent Auto 16.2 % (20-40); Mean Corpuscular HGB Conc 33.3 g/dl (31.0-36.0); Mean Corpuscular Hemoglobin 29.8 pg (27.0-33.0); Mean Corpuscular Volume 89.3 fL (80.0-98.0); Mean Platelet Volume 10.5 fL (9.4-12.4); Monocytes Absolute Auto 0.5 X10*3/uL (0.1-1.2); Monocytes Percent Auto 7.5 % (2-11); Neutrophils Absolute Auto 5.1 x10*3/uL (2.0-8.3); Neutrophils Percent Auto 73.4 % (45-73); Platelet Count 188 X10*3/uL (160-400); Red Blood Count 4.87 X10*6/uL (4.60-5.80); White Blood Count 6.9 X10*3/uL (4.8-10.8)
[2025-03-31 14:12] LABS: Alanine Aminotransferase 20 U/L (0-40); Albumin Level 4.2 g/dL (3.5-5.0); Alkaline Phosphatase 61 U/L (39-117); Anion Gap 14 (12-20); Aspartate Amino Transferase 29 U/L (5-37); Bilirubin Total 0.8 mg/dL (0.0-1.0); Blood Urea Nitrogen 29 mg/dL (9-16); Calcium 9.1 mg/dL (8.4-10.2); Carbon Dioxide 21 mmol/L (22-29); Chloride 106 mmol/L (96-108); Estimated Glomerular Filt Rate 35; Glucose Random 130 mg/dL (60-115); Potassium 4.2 mmol/L (3.3-5.1); Sodium 137 mmol/L (135-145); Total Protein 7.1 g/dL (6.5-8.0)
== END 2025-03-31 09:12 | disposition home or self-care (01) ==
LOC: HO.HMGCLDS 09:11
PROVIDERS: PCP Internal Medicine; Visit Provider Internal Medicine
DX: Z01.818 Encounter for other preprocedural examination (principal); H26.9 Unspecified cataract; E78.5 Hyperlipidemia, unspecified; I12.9 Hypertensive chronic kidney disease with stage 1 through stage 4 chronic kidney disease, or unspecified chronic kidney disease; N18.4 Chronic kidney disease, stage 4 (severe); I48.11 Longstanding persistent atrial fibrillation; I42.8 Other cardiomyopathies; E66.01 Morbid (severe) obesity due to excess calories; Z68.41 Body mass index [BMI] 40.0-44.9, adult; K21.9 Gastro-esophageal reflux disease without esophagitis; Z79.01 Long term (current) use of anticoagulants; Z79.899 Other long term (current) drug therapy
CPT/HCPCS: 36415; 80053; 85025; 99212

== ENCOUNTER 2025-03-31 09:11 | Outpatient (AMB) | payer MEDICARE, SELFPAY ==
[2025-03-31 09:23] VITALS: BP 126/62; PULSE 64; RESP 16; TEMP 36.7; O2SAT 94; BMI 44.5
--- NOTE | 2025-03-31 09:23 | A.OFFPC_ITS ---
Vital Signs 03/31/25 09:23 Height 5 ft 4 in Weight 259 lb BMI 44.5 BP 126/62 Blood Pressure Location Rt brachial Position Sitting Respiration 16 Pulse 64 Pulse Source Pulse Oximeter Temp 98.0 F Temp Source Oral Pulse Oximetry (%) 94 Oxygen Delivery Method Room Air Intake Visit Reasons: LT Eye Phacoemulsification Allergies No Known Allergies [No Known Allergies*] Allergy (Mild, Verified 08/05/24 10:22) NONE Medication List - Last Reconciled 03/31/25 by Julissa oDoley MD amiodarone 200 mg PO DAILY atorvastatin 40 mg PO BEDTIME calcitriol 0.25 mcg PO 3XW cholecalciferol (vitamin D3) 50 mcg PO DAILY furosemide 20 mg PO BID lisinopril 2.5 mg PO DAILY meclizine 12.5 mg PO DAILY PRN metoprolol succinate ER 100 mg PO DAILY omeprazole 20 mg PO DAILY 90 days spironolactone 12.5 mg PO DAILY vit C,E,Zn,Dk-[id number]-zeax 250-2.5-0.5 mg caps PO warfarin 5 mg PO Q OTHER DAY Tobacco use date assessed: 03/31/25 Last assessed Fall Risk: 03/31/25 Dental Screening Dental Screen Date: 03/31/25 HPI LT Eye Phacoemulsification HPI Details Chief Complaint The patient presents for pre-operative evaluation for cataract surgery and mayito nicole of chronic conditions. History - The patient is an 80-year-old male pre senting for follow-up and pre-operative evaluation for cataract surgery scheduled for the left eye on April 08 and the right eye on May 04. By Dr. Wendy rojo, [facility]. Fax - The patient has a history of essential hypertension, managed with lisinopril 2.5 mg, and recently recorded blood pressure was 126/62 mmHg. - He has atrial fibrillation, managed amiodarone 100 mg and warfarin, and recent labs were drawn on February 18 [address] [facility] with Dr. Hernandez. A chest X-ray was also performed. - The patient has hyperlipidemia and linda es atorvastatin 40 mg. - He reported compromised kidney functio ns, with levels decreasing from 39% in July to 35% currently, monitored by Dr. Fowler. - History of GERD and dizziness for whic h he uses meclizine 12.5 mg occasionally. Also on furosemide 20 mg two times daily and spironolactone, which might lead to dehydration. - Reports no fever, chills, nausea, vomi ting, difficulty living requirements, or signs of breast enlargement from medication. Medical History: - Essential Hypertension - Atrial Fibrillation - Hyperlipidemia - Gastroesophageal Reflux Disease (GERD) - Morbid Obesity - History of Kidney Dysfunction Social History: - Lives with grandson and girlfriend in a house purchased by his youngest son. - Engages in walking for physical activi ty and remains active. Diagnostic Results: - Labs performed on February 18 - Chest X-ray performed as part of [facility] function monitoring these reports are not available new set of lab order placed - Kidney function decreased from 39% to 35% over several months Medications - Amiodarone 100 mg (Atrial Fibrillation ) - Atorvastatin 40 mg (Hyperlipidemia) - Vitamin D supplementation - Furosemide 20 mg two times daily (Hype rtension, Edema) - Spironolactone (Hypertension) - Lisinopril 2.5 mg (Essential Hypertens ion) - Meclizine 12.5 mg occasionally (Dizzin ess) - Warfarin (Prevents clots in Atrial Fib rillation) Problem List - Essential Hypertension - Atrial Fibrillation - Hyperlipidemia - Gastroesophageal Reflux Disease (GERD) - Morbid Obesity - Compromised Kidney Function Plan The plan for this visit includes preparing the patient for his upcoming cataract surgery with a focus on maintaining stable chronic condition management. Given his essential hypertension, atrial fibrillation, and compromised kidney function, it?s crucial that pre-operative assessments confirm he is fit for the procedure. We will verify hemoglobin, liver, and kidney function, due to his diuretics and potential dehydration risk affecting blood pressure management. Continuing amiodarone, warfarin, and atorvastatin is essential to control atrial fibrillation, prevent clot formation, and manage hyperlipidemia leading up to surgery. Recommended hydration should be reinforced due to diuretics and the patient's potential for dizziness. Ensuring his recent labs and chest X-rays inform surgical readiness, I will watch for procedure clearance from current blood work results. Provided his chronic conditions remain stable, and he has reached stable kidney functions observed by Dr. Fowler, he will maintain current medications Patient is stable for cataract surgery Addendum will be created after the [facility] Medical History History of GI bleed Social History Housing: House Alcohol intake: former Patient Tobacco Use Status: Former Tobacco user e-Cigarette/Vaping Use: Never Used Current occupational status: retired Cognitive needs: No Hearing needs: No Vision needs: Yes Questionnaire Thrive Questionnaire Date Thrive assessed: 08/05/24 DYLLAN-7 AMB Questionnaire DYLLAN-7 Date DYLLAN - 7 assessed: 08/05/24 Source: Developed by Drs. Shane Eid, Emily Knox, Alessandro Gonzalez and colleagues, with an educational patricia from [employer] ([employer] Review of Systems Const Denies chills and Denies fever(s) ENT Denies epistaxis and Denies nasal discharge Card Denies chest pain Resp Denies chest congestion, Denies cough and Denies hemoptysis GI Denies diarrhea and Denies nausea Skin/Breast Denies rash Neuro Reports no additional complaints Psych Reports no additional complaints Endo Reports no additional complaints Physical exam (Primary Care) Vital Signs: Last Vital Signs Temp 98.0 F 03/31/25 09:23 Pulse 64 03/31/25 09:23 Resp 16 03/31/25 09:23 BP 126/62 03/31/25 09:23 Pulse Ox 94 03/31/25 09:23 Oxygen Delivery Method Room Air 03/31/25 09:23 BMI result Body Mass Index 44.5 Tobacco/Smoking Status: Tobacco use Status Tobacco use date assessed 03/31/25 03/31/25 09:25 Patient Tobacco Use Status Former Tobacco user 03/31/25 09:25 e-Cigarette/Vaping Use Never Used 03/31/25 09:25 Thrive Assessment: Date of Thrive Assessment Date Thrive assessed 08/05/24 03/31/25 09:25 Const Other: Patient was able to get on examination table , use cane for ambulation instability General: cooperative, comfortable and no acute distress Orientation/consciousness: patient oriented x3 HENMT Head: Yes normocephalic Eyes General: appearance normal, both eyes and all related structures Neck Neck: Yes supple Resp Effort & Inspection: normal respiratory effort, no cough and no stridor Cardio Other: Irregularly irregular rhythm Heart sounds: S1 normal heart sound present and S2 normal heart sound present GI Other: Exam benign Skin General skin exam: turgor normal Neuro General: patient oriented x3, tone normal and moves all extremities Extrem Right lower extremity: no edema Left lower extremity: no edema Coding Level of Care Code Est Pt Level 5 (31707) Diagnoses Pre-op evaluation Z01.818 Cataract of both eyes, unspecified cataract type H26.9 Cataract type: unspecified Laterality: bilateral Chronic kidney disease, stage 4 (severe) N18.4 Longstanding persistent atrial fibrillation I48.11 Atrial fibrillation type: longstanding persistent Other cardiomyopathy I42.8 Cardiomyopathy type: other Lipid disorder E78.9 Morbid obesity due to excess calories E66.01 Time Spent (min) 40 Comment Reviewing chart/labs/ucfm-qf-zbmd/coordination of care Assessment & Plan Assessment & Plan (1) Pre-op evaluation: Code(s): Z01.818 - Encounter for other preprocedural examination Category: Medical (2) Cataract: Code(s): H26.9 - Unspecified cataract Category: Medical Qualifiers: Cataract type: unspecified Laterality: bilateral Qualified Code(s): H26.9 - Unspecified cataract (3) Chronic kidney disease, stage 4 (severe): Code(s): N18.4 - Chronic kidney disease, stage 4 (severe) Category: Medical (4) Atrial fibrillation: Code(s): I48.91 - Unspecified atrial fibrillation Category: Medical Qualifiers: Atrial fibrillation type: longstanding persistent Qualified Code(s): I48.11 - Longstanding persistent atrial fibrillation (5) Cardiomyopathy: Code(s): I42.9 - Cardiomyopathy, unspecified Category: Medical Qualifiers: Cardiomyopathy type: other Qualified Code(s): I42.8 - Other cardiomyopathies (6) Lipid disorder: Code(s): E78.9 - Disorder of lipoprotein metabolism, unspecified Category: Medical (7) Morbid obesity due to excess calories: Code(s): E66.01 - Morbid (severe) obesity due to excess calories Category: Medical Plan Chief Complaint The patient presents for pre-operative evaluation for cataract surgery and management of chronic conditions. History - The patient is an 80-year-old male presenting for follow-up and pre-operative evaluation for cataract surgery scheduled for the left eye on April 08 and the right eye on May 04. By Dr. Wendy rojo, at [facility]. Fax - The patient has a history of essential hypertension, managed with lisinopril 2.5 mg, and recently recorded blood pressure was 126/62 mmHg. - He has atrial fibrillation, managed with amiodarone 100 mg and warfarin, and recent labs were drawn on February 18 at [facility] with Dr. Hernandez. A chest X-ray was also performed. - The patient has hyperlipidemia and takes atorvastatin 40 mg. - He reported compromised kidney functions, with levels decreasing from 39% in July to 35% currently, monitored by Dr. Fowler. - History of GERD and dizziness for which he uses meclizine 12.5 mg occasionally. Also on furosemide 20 mg two times daily and spironolactone, which might lead to dehydration. - Reports no fever, chills, nausea, vomiting, difficulty living requirements, or signs of breast enlargement from medication. Medical History: - Essential Hypertension - Atrial Fibrillation - Hyperlipidemia - Gastroesophageal Reflux Disease (GERD) - Morbid Obesity - History of Kidney Dysfunction Social History: - Lives with grandson and girlfriend in a house purchased by his youngest son. - Engages in walking for physical activity and remains active. Diagnostic Results: - Labs performed on February 18 - Chest X-ray performed as part of kidney function monitoring these reports are not available new set of lab order placed - Kidney function decreased from 39% to 35% over several months Medications - Amiodarone 100 mg (Atrial Fibrillation) - Atorvastatin 40 mg (Hyperlipidemia) - Vitamin D supplementation - Furosemide 20 mg two times daily (Hypertension, Edema) - Spironolactone (Hypertension) - Lisinopril 2.5 mg (Essential Hypertension) - Meclizine 12.5 mg occasionally (Dizziness) - Warfarin (Prevents clots in Atrial Fibrillation) Problem List - Essential Hypertension - Atrial Fibrillation - Hyperlipidemia - Gastroesophageal Reflux Disease (GERD) - Morbid Obesity - Compromised Kidney Function Plan The plan for this visit includes preparing the patient for his upcoming cataract surgery with a focus on maintaining stable chronic condition management. Given his essential hypertension, atrial fibrillation, and compromised kidney function, it?s crucial that pre-operative assessments confirm he is fit for the procedure. We will verify hemoglobin, liver, and kidney function, due to his diuretics and potential dehydration risk affecting blood pressure management. Continuing amiodarone, warfarin, and atorvastatin is essential to control atrial fibrillation, prevent clot formation, and manage hyperlipidemia leading up to surgery. Recommended hydration should be reinforced due to diuretics and the patient's potential for dizziness. Ensuring his recent labs and chest X-rays inform surgical readiness, I will watch for procedure clearance from current blood work results. Provided his chronic conditions remain stable, and he has reached stable kidney functions observed by Dr. Fowler, he will maintain current medications Patient is stable for cataract surgery Addendum will be created after the labs Orders: Orders Complete Blood Count Auto Diff Today E66.01 - Morbid (severe) obesity due to excess calories, E78.9 - Disorder of lipoprotein metabolism, unspecified, H26.9 - Unspecified cataract, N18.4 - Chronic kidney disease, stage 4 (severe), Z01.818 - Encounter for other preprocedural examination Comprehensive Met. Panel Today E66.01 - Morbid (severe) obesity due to excess calories, E78.9 - Disorder of lipoprotein metabolism, unspecified, H26.9 - Unspecified cataract, N18.4 - Chronic kidney disease, stage 4 (severe), Z01.818 - Encounter for other preprocedural examination
--- OUTSIDE RECORDS SUMMARY | 2025-03-31 09:46 | XMS_ITS | Clinical Summary ---
Author Organization [facility] Address [address] [address] Phone Care Team Providers Care Instrument Repairer Steam Plant Name Role Phone Julissa Dooley MD Primary Care Provider Allergies No known active allergies Medications warfarin (COUMADIN) 5 MG tablet Take 5 mg by mouth 1 (one) time each day Active spironolactone (ALDACTONE) 25 MG tablet Take 12.5 tablets by mouth 1 (one) time each day Active omeprazole (PriLOSEC) [address] capsule Take 1 capsule by mouth 1 (one) time each day Active meclizine (ANTIVERT) 12.5 MG tablet Take 1 tablet by mouth if needed Active lisinopril (PRINIVIL,ZESTR IL) 5 MG tablet Take 2.5 mg by mouth 1 (one) time each day Active furosemide (LASIX) 20 MG tablet Take 40 mg by mouth 1 (one) time each day Active ergocalciferol (VITAMIN D-2) 1.25 MG (82375 UT) capsule Take 1 capsule by mouth 1 (one) time per week 02/12/2020 Active atorvastatin (LIPITOR) 40 MG tablet Take 1 tablet by mouth 1 (one) time each day Active amiodarone (PACERONE) 200 MG tablet 100 mg 03/27/2021 Active metoprolol succinate XL (TOPROL-XL) 100 MG 24 hr tablet Take 100 mg by mouth 1 (one) time each day 03/27/2021 Active calcitriol (ROCALTROL) 0.25 MCG capsule TAKE 1 CAPSULE BY MOUTH EVERY OTHER DAY 45 capsule 3 11/01/2024 Active Active Problems Problem Noted Date Diagnosed Date Coronary arteriosclerosis 06/07/2022 Stage 3b chronic kidney disease 09/27/2021 Renal osteodystrophy 09/27/2021 Benign essential hypertension 03/27/2021 Chronic kidney disease stage 3 03/27/2021 Chronic kidney disease stage 4 03/27/2021 Hypertensive heart and renal disease with (congestive) heart failure 03/27/2021 Ischemic cardiomyopathy 03/22/2021 Overview (03/12/2023): LVEF ~35% AMI 01/2017 and RAWHIDE BONE ROLLER without other critical disease 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 She is not currently reporting any shortness of breath to me. Continue ongoing medical therapy with his beta- eugenio, MRA, KERRY inhibitor and diuretic. His Lasix is refilled today. Mixed hyperlipidemia 03/22/2021 Overview (03/12/2023): Last Assessment & Plan: Well-controlled lipid profile from September 2020. Continue statin at current dose given concurrent use of amiodarone. Atrial fibrillation with rapid ventricular respo nse 02/09/2021 Overview (03/12/2023): Coagulated with Coumadin Rhythm control strategy with amiodarone Cardioversion February 24, 2021 Last Assessment & Plan: Patient's atrial fibrillation burden by his device is only 3.7%. Continue rhythm control strategy with amiodarone. Continue also his metoprolol. He will update his TSH and LFTs today. I will let him know the results once they are available to me. 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 Continue current treatment plan. Immunizations Immunization Administration Dates Next Due Hepatitis B 12/15/2003,07/14/2003,06/16/2003 Moderna SARS-COV-2 03/16/2021,02/16/2021 Pneumococcal Conjugate 13-Valent 08/15/2018 Tdap 10/05/2004 Family History Medical History Relation Comments Cancer Father Cancer Mother Hypertension Mother Relation Status Comments Father Mother Social History Tobacco Use Types Packs/Day Years Used Date Smoking Tobacco: Former Cigarettes Q uit: 10/21/1969 Smokeless Tobacco: Never Comments:Smoking History Inf o:Every day Alcohol Use Standard Drinks/Week Comments Never 0 (1 standard drink = 0.6 oz pur e alcohol) Sex and Gender Information Value Date Recorded Sex Assigned at Not on file Legal Sex Male 4:53 PM EST Gender Identity Not on file Sexual Orientation Not on file Last Filed Vital Signs Vital Sign Reading Time Taken Comments Blood Pressure 140/80 08/31/2024 2:29 PM EST Pulse 99 08/31/2024 2:29 PM EST Temperature - - Respiratory Rate - - Oxygen Saturation 98% 08/31/2024 2:29 PM EST Inhaled Oxygen Concentration - - Weight 112 kg (246 lb) 03/02/2024 1:00 PM EDT Height 162.6 cm (5' 4 ) 03/28/2021 10:03 AM EDT Body Mass Index 42.23 03/28/2021 10:03 AM EDT Plan of Treatment Upcoming Encounters Date Type Department Care Team (Late st Contact Info) Description 04/30/2025 Orders Only [facility] [address] [place] [address] Fred Fowler MD [phone] [facility] [address] [place] [address] Stage 3b chronic kidney disease (HCC); 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); Hypertensive disorder 06/07/2025 2:15 PM EDT Office Visit [facility] [address] [place] [address] rFed Fowler MD [address] [phone] Health Maintenance Due Date Last Done Comments Pneumococcal Vaccine: 50+ Years (2 of 2 - PPSV23, PCV20, or PCV21) 10/10/2018 08/15/2018 Influenza Vaccine (Season Ended) 2025 Hepatitis B Vaccine Aged Out 12/15/2003, 07/14/2003, 06/16/2003 No longer eligible based on patient's age to complete this topic Pneumococcal Vaccine: Peds (0 to 5 Years) and At-Risk Patients (6 to 49 Years) Discontinued 08/15/2018 Insurance Medicare Medicare Care Teams Instrument Repairer Steam Plant Relationship Specialty Start Date End Date Julissa Dooley MD [address] [place] [address] PCP - General 10/31/20
== END 2025-03-31 09:55 | disposition home or self-care (01) ==
LOC: HO.HMCC 09:12
PROVIDERS: PCP Internal Medicine; Visit Provider Internal Medicine
DX: I48.11 Longstanding persistent atrial fibrillation (principal); N18.4 Chronic kidney disease, stage 4 (severe); E66.01 Morbid (severe) obesity due to excess calories; Z68.41 Body mass index [BMI] 40.0-44.9, adult; I42.8 Other cardiomyopathies; Z01.818 Encounter for other preprocedural examination; H26.9 Unspecified cataract; E78.9 Disorder of lipoprotein metabolism, unspecified

== ENCOUNTER 2025-04-22 08:44 | Outpatient (REF) | payer MEDICARE, SELFPAY ==
--- OUTSIDE RECORDS SUMMARY | 2025-04-20 08:35 | XMS_ITS | Encounter Summary ---
Author Organization [facility] Address [address] [place] [id number] Care Team Providers Care Tank Washer Name Role Phone Julissa Dooley MD Primary Care Provider [phone] Encounter Details Date Type Department Care Team (Late st Contact Info) Description 04/20/2025 8:35 AM EDT Ancillary Procedure [facility] - [facility] [address] [facility] [address] [place] [phone] Arrived Social History Tobacco Use Types Packs/Day Years Used Date Smoking Tobacco: Former Cigarettes Q uit: 10/21/1974 Smokeless Tobacco: Never Alcohol Use Standard Drinks/Week Comments Not Currently 0 (1 standard drink = 0.6 oz pur e alcohol) Sex and Gender Information Value Date Recorded Sex Assigned at Not on file Legal Sex Male 6:53 PM EST Gender Identity Not on file Sexual Orientation Not on file documented as of this encounter Plan of Treatment Upcoming Encounters Date Type Department Care Team (Late Contact Info) Description 09/02/2025 8:30 AM EST Ancillary Procedure [facility] - [facility] [address] [facility] [address] [place] [address] 09/23/2025 8:50 AM EST Office Visit [facility] [address] [facility] [address] [place] [address] Yasmany Roth MD [address] [facility] [address] [place] [address] documented as of this encounter Procedures Procedure Name Priority Date/Time Associated Diagnosis Comments CARDIAC DEVICE CHECK- REMOTE- MURJ Routine 04/20/2025 8:30 AM EDT documented in this encounter Results * Cardiac device check - Remote- MURJ (04/20/2025 8:30 AM EDT) Date Time Interrogation Session [id number] CV DEVICE CHECK Type Interrogation Session Remote CV DEVICE CHECK Implantable Pulse Generator Racecourse Barrier Attendant BIO CV DEVICE CHECK Implantable Pulse Generator Type ICD CV DEVICE CHECK Implantable Pulse Generator Model Intica 7 VR-T DX CV DEVICE CHECK Implantable Pulse Generator Serial Number [id number] CV DEVICE CHECK Implantable Pulse Generator Implant Date [id number] CV DEVICE CHECK Battery Remaining Percentage 39.00 CV DEVICE CHECK Battery Voltage 3.060 CV D EVICE CHECK Battery EXTRACTOR OPERATOR SOLVENT PROCESS Trigger 2.850 CV DEVICE CHECK Battery Status Middle of Service CV DEVICE CHECK Capacitor Charge Time 10.400 CV DEVICE CHECK Jeremi Statistic RV Percent Paced 2.00 CV DEVICE CHECK Atrial Tachy Statistic AT/AF [place] Percent 1.00 CV DEVICE CHECK Lead Channel Sensing Intrinsic Amplitude 4.600 CV DEVICE CHECK Lead Channel Setting Sensing Sensitivity 1.00 CV DEVICE CHECK Lead Channel RA Pacing Threshold Date 2025-04-15 CV DEVICE CHECK Lead Channel Sensing Intrinsic Amplitude 19.200 CV DEVICE CHECK Lead Channel Setting Sensing Sensitivity 0.80 CV DEVICE CHECK Lead Channel Impedance Value 493 CV DEVICE CHECK Lead Channel Pacing Threshold Amplitude 0.800 CV DEVICE CHECK Lead Channel Pacing Threshold Pulse Width 0.4 CV DEVICE CHECK Lead Channel RV Pacing Threshold Date 2025-04-15 CV DEVICE CHECK Lead Channel Setting Pacing Amplitude 1.800 CV DEVICE CHECK Lead Channel Setting Pacing Pulse Width 0.4 CV DEVICE CHECK Jeremi Setting Mode (NBG Code) VVI CV DEVICE CHECK Jeremi Setting Lower Rate Limit 40 CV DEVICE CHECK Therapy Statistic Recent Shocks Delivered 0 CV DEVICE CHECK Therapy Statistic Recent Shocks Aborted 0 CV DEVICE CHECK Therapy Statistic Recent ATP Delivered 0 CV DEVICE CHECK Shock Measured Impedance 66 CV DEVICE CHECK Zone Setting Type Category Zone_ATAF CV DEVICE CHECK Rate 200 CV DEVICE CHECK Zone Setting Status Monitor CV DEVICE CHECK Zone ID 7 CV DEVICE CHECK Zone Setting Type Category VF CV DEVICE CHECK Rate 200 CV DEVICE CHECK Therapies Burst,30.0J,40.0J, 40.0J x 6 CV DEVICE CHECK Zone Setting Status On CV DEVICE CHECK Zone ID 8 CV DEVICE CHECK Zone Setting Type Category VT CV DEVICE CHECK Rate 150 CV DEVICE CHECK Zone Setting Status Monitor CV DEVICE CHECK Zone ID 9 CV DEVICE CHECK Zone Setting Type Category VT CV DEVICE CHECK Zone Setting Status Inactive CV DEVICE CHECK Zone ID 10 CV DEVICE CHECK Date of Service 2025-06-28 CV DEVICE CHECK Anatomical Region Laterality Modality Device Interroga tion 04/15/2025 1:02 AM EDT Impressions 04/20/2025 8:28 AM EDT Normal Remote: With Events * Normal Device Function * Events or Alerts: Ongoing AFib Rate controlled * Battery: Battery is at 39%, * Sensing, impedance and thresholds reviewed * Programmed parameters reviewed * Presenting rhythm reviewed * Heart Rate Histograms reviewed Heart Failure Diagnostic: Stable * Heart failure diagnostics assessed through the device * Status: Stable * No overt HF present Narrative Procedure Note Katherine Ramirez PA - 04/20/2025 IMPRESSION: Normal Remote: With Events * Normal Device Function * Events or Alerts: Ongoing AFib Rate controlled * Battery: Battery is at 39%, * Sensing, impedance and thresholds reviewed * Programmed parameters reviewed * Presenting rhythm reviewed * Heart Rate Histograms reviewed Heart Failure Diagnostic: Stable * Heart failure diagnostics assessed through the device * Status: Stable * No overt HF present Katherine FIGUEROA CV IMPLANTABLE CARDIAC DEVICE [place] OCEDURES Final Result documented in this encounter Visit Diagnoses Not on filedocumented in this encounter Care Teams Tank Washer Relationship Specialty Start Date End Date Julissa Dooley MD [address] [place] [address] PCP - General Internal Medicine 09/19/20 documented as of this encounter
--- OUTSIDE RECORDS SUMMARY | 2025-04-22 08:52 | XMS_ITS | Clinical Summary ---
Author Organization 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 Apical aneurysm and [...] Only [facility] [address] [place] [address] Fred Fowler MD [address] [facility] [address] [place] [address] Stage 3b chronic kidney disease (HCC); 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); Hypertensive disorder 06/07/2025 2:15 PM EDT Office Visit [facility] [address] [place] [address] Fred Fowler MD [address] [phone] Health Maintenance Due Date Last Done Comments Pneumococcal Vaccine: 50+ Years (2 of 2 - PPSV23, PCV20, or PCV21) 10/10/2018 08/15/2018 Influenza Vaccine (#1) 2025 Hepatitis B Vaccine Aged Out 12/15/2003, 07/14/2003, 06/16/2003 No longer eligible based on patient's age to complete this topic Pneumococcal Vaccine: Peds (0 to 5 Years) and At-Risk Patients (6 to 49 Years) Discontinued 08/15/2018 Insurance Medicare Medicare Care Teams Machine Lead Burner Relationship Specialty Start Date End Date Julissa Dooley MD [address] [place] [address] PCP - General 10/31/20
[2025-04-22 10:06] LABS: MANUAL DIFF FLAG NO
[2025-04-22 10:18] LABS: Hematocrit 43.5 % (42.0-52.0); Hemoglobin 14.7 g/dl (14.0-18.0); Imm Gran Abs Auto 0.04 X10*3/uL (0.00-0.03); Imm Gran Pct Auto 0.5 % (0.0-0.4); Lymphocytes Absolute Auto 1.4 X10*3/uL (1.2-4.9); Mean Corpuscular HGB Conc 33.8 g/dl (31.0-36.0); Mean Corpuscular Hemoglobin 29.5 pg (27.0-33.0); Mean Corpuscular Volume 87.3 fL (80.0-98.0); NRBC Abs Auto 0.000 X10*3/uL (0.0-0.012); NRBC Pct Auto 0.0 /100WBC (0.0-0.2); Platelet Count 219 X10*3/uL (160-400); Red Blood Count 4.98 X10*6/uL (4.60-5.80); White Blood Count 7.6 X10*3/uL (4.8-10.8)
[2025-04-22 10:43] LABS: Albumin Level 3.9 g/dL (3.5-5.0); Anion Gap 12 (12-20); Blood Urea Nitrogen 25 mg/dL (9-16); Calcium 8.8 mg/dL (8.4-10.2); Carbon Dioxide 23 mmol/L (22-29); Chloride 107 mmol/L (96-108); Estimated Glomerular Filt Rate 39; Magnesium 2.0 mg/dL (1.6-2.6); Potassium 4.1 mmol/L (3.3-5.1); Sodium 138 mmol/L (135-145)
[2025-04-22 10:59] LABS: Microalbum/Creatinine Ratio Ur 5.9 ug/mg cr (<30); Total Protein Urine Random < 7 mg/dL (<12)
[2025-04-22 11:01] LABS: Parathyroid Hormone Intact 182.9 pg/mL (8.7-77.1)
== END 2025-04-22 08:45 | disposition home or self-care (01) ==
LOC: HO.HMGCLDS 08:44
PROVIDERS: PCP Internal Medicine; Visit Provider Internal Medicine Nephrology
DX: I13.0 Hypertensive heart and chronic kidney disease with heart failure and stage 1 through stage 4 chronic kidney disease, or unspecified chronic kidney disease (principal); N18.32 Chronic kidney disease, stage 3b; I50.9 Heart failure, unspecified; R82.90 Unspecified abnormal findings in urine
CPT/HCPCS: 36415; 80051; 82040; 82043; 82306; 82310; 82565; 82570; 83735; 83970; 84100; 84156; 84520; 85025; 87086

== ENCOUNTER 2025-04-26 08:08 | Outpatient (REF) | payer MEDICARE, SELFPAY ==
--- OUTSIDE RECORDS SUMMARY | 2025-04-23 17:30 | XMS_ITS | Encounter Summary ---
Author Organization [facility] Address [address] [place] [phone] Care Team Providers Care Scraper Tender Name Role Phone Julissa Dooley MD Primary Care Provider [phone] Encounter Details Date Type Department Care Team (Late st Contact Info) Description 04/23/2025 5:30 PM EDT Ancillary Procedure [facility] Cardiology [facility] [address] [facility] [address] [place] [phone] Arrived Social History Tobacco Use Types Packs/Day [...] Care Team (Late st Contact Info) Description 09/02/2025 8:30 AM EST Ancillary Procedure [facility] Cardiology [facility] [address] [facility] [address] [place] [address] 09/23/2025 8:50 AM EST Office Visit [facility] Cardiology [facility] [address] [facility] 154 [place] [phone] Yasmany Roth MD [address] [facility] [address] [place] [address] documented as of this encounter Procedures Procedure Name Priority Date/Time Associated Diagnosis Comments CARDIAC DEVICE CHECK- REMOTE- MURJ Routine 04/23/2025 5:28 PM EDT documented in this encounter Results * Cardiac device check - Remote- MURJ (04/23/2025 5:28 PM EDT) Date Time Interrogation Session [id number] CV DEVICE CHECK Type Interrogation Session Remote CV DEVICE CHECK Implantable Pulse Generator Engagement Liaison BIO CV DEVICE CHECK Implantable Pulse Generator Type ICD CV DEVICE CHECK Implantable Pulse Generator Model Intica 7 VR-T DX CV DEVICE CHECK Implantable Pulse Generator Serial Number [id number] CV DEVICE CHECK Implantable Pulse Generator Implant Date [id number] CV DEVICE CHECK Battery Remaining Percentage 39.00 CV DEVICE CHECK Battery Voltage 3.060 CV D EVICE CHECK Battery SPORTS AGENT Trigger 2.850 CV DEVICE CHECK Battery Status Middle of Service CV DEVICE CHECK Capacitor Charge Time 10.400 CV DEVICE CHECK Jeremi Statistic RV Percent Paced 2.00 CV DEVICE CHECK Atrial Tachy Statistic AT/AF [place] Percent 2.00 CV DEVICE CHECK Lead Channel Sensing Intrinsic Amplitude 4.000 CV DEVICE CHECK Lead Channel Setting Sensing Sensitivity 1.00 CV DEVICE CHECK Lead Channel RA Pacing Threshold Date 2025-04-22 CV DEVICE CHECK Lead Channel Sensing Intrinsic Amplitude 20.000 CV DEVICE CHECK Lead Channel Setting Sensing Sensitivity 0.80 CV DEVICE CHECK Lead Channel Impedance Value 507 CV DEVICE CHECK Lead Channel Pacing Threshold Amplitude 0.800 CV DEVICE CHECK Lead Channel Pacing Threshold Pulse Width 0.4 CV DEVICE CHECK Lead Channel RV Pacing Threshold Date 2025-04-22 CV DEVICE CHECK Lead Channel Setting Pacing [...] Anatomical Region Laterality Modality Device Interroga tion 04/22/2025 5:25 AM EDT Impressions 04/23/2025 5:26 PM EDT Atrial Fibrillation w/Controlled V Response * Stored EGMs are consistent with or suggestive of Atrial Fibrillation with Controlled Ventricular Response * AT/AF [place]: 2% Additional Notes: Ongoing Narrative Procedure Note Radha Frye, TOMAS - 04/23/2025 IMPRESSION: Atrial Fibrillation w/Controlled V Response * Stored EGMs are consistent with or suggestive of Atrial Fibrillationwith Controlled Ventricular Response * AT/AF [place]: 2% Additional Notes: Ongoing Radha Frye NP CV IMPLANTABLE CARDIAC DEVIC E PROCEDURES Final Result documented in this encounter Visit Diagnoses Not on filedocumented in this encounter Care Teams Scraper Tender Relationship Specialty Start Date End Date Julissa Dooley MD [address] [place] [phone] PCP - General Internal Medicine 09/19/20 documented as of this encounter
--- OUTSIDE RECORDS SUMMARY | 2025-04-26 08:17 | XMS_ITS | Clinical Summary ---
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 Apical aneurysm and [...] Only [facility] [address] [place] [address] Fred Fowler MD [address] [facility] [address] [place] [address] Stage 3b chronic kidney disease (HCC); 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
[2025-04-26 14:52] LABS: Microalbum/Creatinine Ratio Ur 55.3 ug/mg cr (<30); Protein/Creatinine Ratio, Ur 0.17 (<0.2); Total Protein Urine Random 34 mg/dL (<12)
== END 2025-04-26 08:09 | disposition home or self-care (01) ==
LOC: HO.HMGCLDS 08:08
PROVIDERS: PCP Internal Medicine; Visit Provider Internal Medicine Nephrology
DX: N18.32 Chronic kidney disease, stage 3b (principal); I50.9 Heart failure, unspecified; I13.0 Hypertensive heart and chronic kidney disease with heart failure and stage 1 through stage 4 chronic kidney disease, or unspecified chronic kidney disease
CPT/HCPCS: 82043; 82570; 84156

== ENCOUNTER 2025-08-13 09:40 | Outpatient (REF) | payer MEDICARE, SELFPAY ==
--- OUTSIDE RECORDS SUMMARY | 2025-08-13 11:41 | XMS_ITS ---
Author Name Derek Perry Address Unknown Organization [facility] Care Team Providers Care Procedure Manager Name Role Phone Unavailable Primary Care Physician Unavailab le History Of Present Illness This is an 80 year old male who is an established patient who is being seen for an evaluation of skin lesions, located on the body throughout. The lesions are asymptomatic. The lesions have been present for years. He also presents for education and counseling about sun exposure, evaluation for suspicious growths, evaluation of current nevi, and surveillance against skin cancer recurrences. His history is significant for melanoma (see interval history) and basal cell skin cancer (see interval history). Pt has concern on non-healing lesion on left upper cheek that???s been present for months. Pt requesting waist up exam Medications Medication Generic Name RxNorm Strength Strength Unit Route Dose Dose Form Frequency Date Started Date Ended Status Indication Sig ketoconazol e ketocona zole 780716 2 % Topica l cream BID 06/19/20 21 suspend ed Appl y twic e adelina y to rash on ches t and behi nd ears triamcinolo ne acetonide triamcin olone acetonid e 4339527 0.1 % Topica l cream BID 12/14/19 23 suspend ed Appl y twic e adelina y to rash for 2 week s on, then take 1 week off. Repe at as need ed. triamcinolo ne acetonide triamcin olone acetonid e 9047470 0.1 % Topica l cream Twice daily 03/11/20 25 active Appl y 1 g topi call y BID. And appl y usua l mois turi zer over the tria mcin emilee myrick as inst ruct ed. amiodarone amiodaro ne 200 mg Oral 1 table t qd active atorvastati n 40 mg Oral 1 table t qd active calcitriol 101769 0.25 mcg Oral 1 capsu le M,W,F active diltiazem HCl 180 mg Oral 1 Capsu le, Exten ded Relea se 24 hr qd active fexofenadin e fexofena dine 705535 180 mg Oral table t 12/14/19 suspend ed Take one tabl et by mout h once adelina y for itch y rash . furosemide 20 mg Oral 1 table t qd active hydroxyzine HCl hydroxyz ine HCl 939128 10 mg Oral table t 12/14/19 23 suspend ed Take 1 tabl et by mout h at dinn er time for itch reli ef. lisinopril 2.5 mg Oral 1 table t qd active metoprolol succinate 100 mg Oral 1 Table t, Exten ded Relea se 24 hr qd active omeprazole 20 mg Oral 1 capsu le,de layed relea se (ente long coate d) qd active spironolact one 25 mg Oral 1 table t qd active Vitamin C 500 mg Oral capsu le, exten ded relea se suspend ed Vitamin D3 cholecal ciferol (vitamin D3) 125 mcg (5,000 unit) Oral 1 table t qd active warfarin 5 mg Oral 1 table t qd active diltiazem HCl diltiaze m HCl suspend ed Problems Problem Code Type Status Date of Diagnosis Da te of Resolution History of malignant melanoma of the skin (situation) 043205159212 (SNOMED) Diagnosis active 08/12/2025 History of malignant neoplasm of skin (situation) 157745221(SN OMED) Diagnosis active 08/12/2025 Family history of malignant neoplasm (situation) 022244574(SN OMED) Diagnosis active 08/12/2025 Scar conditions and fibrosis of skin (disorder) 805512157(SN OMED) Diagnosis active 08/12/2025 Neoplasm of uncertain behavior of skin (disorder) 15991533(SNO MED) Diagnosis active 08/12/2025 Seborrheic keratosis (disorder) 342920045(SN OMED) Diagnosis active 08/12/2025 Seborrheic dermatitis (disorder) 60287401(SNO MED) Diagnosis active 08/12/2025 History of malignant melanoma of the skin (situation) 500293709628 (SNOMED) Diagnosis active 03/11/2025 History of malignant neoplasm of skin (situation) 736511515(SN OMED) Diagnosis active 03/11/2025 Family history of malignant neoplasm (situation) 303894531(SN OMED) Diagnosis active 03/11/2025 Scar conditions and fibrosis of skin (disorder) 669001640(SN OMED) Diagnosis active 03/11/2025 Basal cell carcinoma of face (disorder) 844321668(SN OMED) Diagnosis active 03/11/2025 Atopic dermatitis (disorder) 04975891(SNO MED) Diagnosis active 03/11/2025 Neoplasm of uncertain behavior of skin (disorder) 03252384(SNO MED) Diagnosis active 03/11/2025 Seborrheic keratosis (disorder) 292741528(SN OMED) Diagnosis active 03/11/2025 Seborrheic dermatitis (disorder) 13517190(SNO MED) Diagnosis active 03/11/2025 Basal cell carcinoma of truncal skin (disorder) 653211806(SN OMED) Diagnosis active 03/11/2025 History of malignant melanoma of the skin (situation) 266073960739 (SNOMED) Diagnosis active 03/19/2024 History of malignant neoplasm of skin (situation) 148995106(SN OMED) Diagnosis active 03/19/2024 Inflamed seborrheic keratosis (disorder) 694572649(SN OMED) Diagnosis active 03/19/2024 Seborrheic dermatitis (disorder) 27455897(SNO MED) Diagnosis active 03/19/2024 Seborrheic keratosis (disorder) 156464478(SN OMED) Diagnosis active 03/19/2024 Scar conditions and fibrosis of skin (disorder) 392601020(SN OMED) Diagnosis active 03/19/2024 Family history of malignant neoplasm (situation) 246241335(SN OMED) Diagnosis active 03/19/2024 History of malignant melanoma of the skin (situation) 670908554474 (SNOMED) Diagnosis active 08/27/2023 History of malignant neoplasm of skin (situation) 095027641(SN OMED) Diagnosis active 08/27/2023 Basal cell carcinoma of upper extremity (disorder) 261913295(SN OMED) Diagnosis active 08/27/2023 Seborrheic keratosis (disorder) 645232094(SN OMED) Diagnosis active 08/27/2023 History of malignant melanoma of the skin (situation) 698632366895 (SNOMED) Diagnosis active 02/26/2023 History of malignant neoplasm of skin (situation) 167744107(SN OMED) Diagnosis active 02/26/2023 Basal cell carcinoma of truncal skin (disorder) 160813628(SN OMED) Diagnosis active 02/26/2023 Hypertrophic condition of skin (disorder) 13058181(SNO MED) Diagnosis active 02/26/2023 Actinic keratosis (disorder) (SN OMED) Diagnosis active 02/26/2023 Inflamed seborrheic keratosis (disorder) 167241101(SN OMED) Diagnosis active 02/26/2023 Seborrheic keratosis (disorder) 294903404(SN OMED) Diagnosis active 02/26/2023 Disorder of skin and/or subcutaneous tissue (disorder) 99745643(SNO MED) Diagnosis active 12/14/2022 Neoplasm of uncertain behavior of skin (disorder) 87744568(SNO MED) Diagnosis active 12/11/2022 Neoplasm of uncertain behavior of skin (disorder) 95953162(SNO MED) Diagnosis active 03/15/2022 History of malignant melanoma of the skin (situation) 792612162031 (SNOMED) Diagnosis active 03/15/2022 History of malignant neoplasm of skin (situation) 327929493(SN OMED) Diagnosis active 03/15/2022 Actinic keratosis (disorder) 303025080(SN OMED) Diagnosis active 03/15/2022 Seborrheic dermatitis (disorder) 75070652(SNO MED) Diagnosis active 03/15/2022 History of malignant melanoma of the skin (situation) 225643436765 (SNOMED) Diagnosis active 08/24/2021 Basal cell carcinoma of upper extremity (disorder) 045573857(SN OMED) Diagnosis active 08/24/2021 History of malignant neoplasm of skin (situation) 654709457(SN OMED) Diagnosis active 08/24/2021 Inflamed seborrheic keratosis (disorder) 195438650(SN OMED) Diagnosis active 08/24/2021 Seborrheic keratosis (disorder) 709724923(SN OMED) Diagnosis active 08/24/2021 Seborrheic dermatitis (disorder) 99160004(SNO MED) Diagnosis active 08/24/2021 Surgical follow-up (finding) 271184486(SN OMED) Diagnosis active 04/21/2021 Basal cell carcinoma of face (disorder) 549392862(SN OMED) Diagnosis active 04/06/2021 History of malignant melanoma of the skin (situation) 953922370329 (SNOMED) Diagnosis active 2021 History of malignant neoplasm of skin (situation) 220209128(SN OMED) Diagnosis active 2021 Basal cell carcinoma of face (disorder) 867332828(SN OMED) Diagnosis active 2021 Seborrheic keratosis (disorder) 000339707(SN OMED) Diagnosis active 2021 Neoplasm of uncertain behavior of skin (disorder) 06482602(SNO MED) Diagnosis active 2021 Seborrheic dermatitis (disorder) 92289306(SNO MED) Diagnosis active 2021 Personal history of malignant melanoma of skin Z85.820(ICD- 10) Diagnosis active 08/23/2020 Personal history of other malignant neoplasm of skin Z85.828(ICD- 10) Diagnosis active 08/23/2020 Basal cell carcinoma of skin of other parts of face C44.319(ICD- 10) Diagnosis active 08/23/2020 Hypertrophic scar L91.0(ICD-10 ) Diagnosis active 08/23/2020 Personal history of malignant melanoma of skin Z85.820(ICD- 10) Diagnosis active 04/21/2020 Personal history of other malignant neoplasm of skin Z85.828(ICD- 10) Diagnosis active 04/21/2020 Neoplasm of uncertain behavior of skin D48.5(ICD-10 ) Diagnosis active 04/21/2020 Actinic keratosis L57.0(ICD-10 ) Diagnosis active 04/21/2020 Other seborrheic keratosis L82.1(ICD-10 ) Diagnosis active 04/21/2020 Other seborrheic dermatitis L21.8(ICD-10 ) Diagnosis active 04/21/2020 Personal history of other malignant neoplasm of skin Z85.828(ICD- 10) Diagnosis active 09/10/2019 Personal history of malignant melanoma of skin Z85.820(ICD- 10) Diagnosis active 09/10/2019 Other seborrheic keratosis L82.1(ICD-10 ) Diagnosis active 09/10/2019 Other seborrheic dermatitis L21.8(ICD-10 ) Diagnosis active 09/10/2019 History of malignant neoplasm of skin (situation) 538042048(SN OMED) Diagnosis active 08/28/2018 Surgical follow-up (finding) 542890816(SN OMED) Diagnosis active 07/15/2018 Surgical follow-up (finding) 992579377(SN OMED) Diagnosis active 06/24/2018 Basal cell carcinoma of face (disorder) 967066320(SN OMED) Diagnosis active 06/16/2018 Personal history of malignant melanoma of skin Z85.820(ICD- 10) Diagnosis active 05/15/2018 Needs influenza immunization (finding) 261408275(SN OMED) Diagnosis active 04/10/2018 History of malignant neoplasm of skin (situation) 869693667(SN OMED) Diagnosis active 04/10/2018 Increased blood pressure (finding) 61343621(SNO MED) Problem active Actinic keratosis (disorder) 751385144(SN OMED) Problem active Basal cell carcinoma of skin (disorder) 980798081(SN OMED) Problem active Benign prostatic hyperplasia (disorder) 905925686(SN OMED) Problem active Increased blood pressure (finding) 39799213(SNO MED) Problem active Malignant melanoma (disorder) 130261400(SN OMED) Problem active Atrial fibrillation (disorder) 29922011(SNO MED) Problem active Results No data Encounters Service provided at [facility], [address] [place] [address], [address], [place], [place] [id number]. Office phonenumber is [phone]. Office fax number is [phone]. Encounter Diagnosis Location Date / Time Type History of malignant melanom a (Z85.820)History of Basal Cell Carcinoma (Z85.828)Family history of malignant melanoma (Z80.8)Scar (L90.5)Rule-Out Basal Cell Carcinoma (D48.5)Rule-Out Basal Cell Carcinoma (D48.5)Seborrheic Keratosis (L82.1)Seborrheic Dermatitis (L21.8) [facility] 08/12/2025 12:30:00 [facility] [id number] Reason For Referral No data Procedures Procedure Date Shave biopsy (procedure) 08/12/2025 12:0 0 am UTC Shave biopsy (procedure) 03/11/2025 12:0 0 am UTC Tumor destruction (procedure) 03/11/2025 12:00 am UTC Cryotherapy of skin lesion with liquid n itrogen (procedure) 03/19/2024 12:00 am UTC Shave biopsy (procedure) 08/27/2023 12:0 0 am UTC Tumor destruction (procedure) 08/27/2023 12:00 am UTC Tumor destruction (procedure) 02/26/2023 12:00 am UTC Cryotherapy of skin lesion with liquid n itrogen (procedure) 02/26/2023 12:00 am UTC Shave biopsy (procedure) 12/11/2022 12:0 0 am UTC Shave biopsy (procedure) 03/15/2022 12:0 0 am UTC Cryotherapy of skin lesion with liquid n itrogen (procedure) 03/15/2022 12:00 am UTC Cryotherapy of skin lesion with liquid n itrogen (procedure) 08/24/2021 12:00 am UTC Shave biopsy (procedure) 08/24/2021 12:0 0 am UTC Mohs surgery (procedure) 04/06/2021 12:0 0 am UTC Shave biopsy (procedure) 2021 12:0 0 am UTC Tumor destruction (procedure) 08/23/2020 12:00 am UTC Cryotherapy of skin lesion with liquid n itrogen (procedure) 04/21/2020 12:00 am UTC Shave biopsy (procedure) 04/21/2020 12:0 0 am UTC History of appendectomy (situation) History of colostomy (situation) Excision of basal cell carcinoma (proced ure) Excision of melanoma (procedure) Surgical biopsy of skin (procedure) History of colostomy (situation) History of appendectomy (situation) Surgical biopsy of skin (procedure) Excision of basal cell carcinoma (proced ure) Excision of melanoma (procedure) Excision of basal cell carcinoma (proced ure) Excision of melanoma (procedure) History of colostomy (situation) History of appendectomy (situation) Surgical biopsy of skin (procedure) Surgical biopsy of skin (procedure) Excision of basal cell carcinoma (proced ure) History of appendectomy (situation) History of colostomy (situation) Excision of melanoma (procedure) Surgical biopsy of skin (procedure) Excision of basal cell carcinoma (proced ure) Excision of melanoma (procedure) History of colostomy (situation) History of appendectomy (situation) Surgical biopsy of skin (procedure) Excision of melanoma (procedure) History of colostomy (situation) History of appendectomy (situation) Excision of basal cell carcinoma (proced ure) History of appendectomy (situation) Excision of basal cell carcinoma (proced ure) Surgical biopsy of skin (procedure) Excision of melanoma (procedure) History of colostomy (situation) History of colostomy (situation) History of appendectomy (situation) Excision of basal cell carcinoma (proced ure) Excision of melanoma (procedure) Surgical biopsy of skin (procedure) History of appendectomy (situation) Surgical biopsy of skin (procedure) Excision of basal cell carcinoma (proced ure) Excision of melanoma (procedure) History of colostomy (situation) Excision of basal cell carcinoma (proced ure) Excision of melanoma (procedure) History of appendectomy (situation) Surgical biopsy of skin (procedure) History of colostomy (situation) History of appendectomy (situation) Excision of melanoma (procedure) History of colostomy (situation) Surgical biopsy of skin (procedure) Excision of basal cell carcinoma (proced ure) Excision of melanoma (procedure) History of colostomy (situation) History of appendectomy (situation) Surgical biopsy of skin (procedure) Excision of basal cell carcinoma (proced ure) History of colostomy (situation) History of appendectomy (situation) Excision of melanoma (procedure) Excision of basal cell carcinoma (proced ure) Surgical biopsy of skin (procedure) Excision of basal cell carcinoma (proced ure) Excision of melanoma (procedure) History of colostomy (situation) History of appendectomy (situation) Surgical biopsy of skin (procedure) Defibrillator, device (physical object) 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) Defibrillator, device (physical object) Excision of basal cell carcinoma (proced ure) Excision of melanoma (procedure) History of colostomy (situation) History of appendectomy (situation) Surgical biopsy of skin (procedure) History of colostomy (situation) Excision of melanoma (procedure) Defibrillator, device (physical object) Excision of basal cell carcinoma (proced ure) Surgical biopsy of skin (procedure) History of appendectomy (situation) Cardiac pacemaker in situ (finding) Review Of Systems Provider reviewed on Aug 12, 2025.A focused review of systems was performed including Integumentary.No Problems With Healing And No Problems With Scarring (hypertrophic Or Keloid). Assessment 1.History of malignant melanomaMonitoringCounseling2.History of Basal Cell CarcinomaMonitoringCounseling3.Family history of malignant melanomaCounseling4.ScarCounseling5.Rule-Out Basal Cell CarcinomaC ounselingBiopsy by Shave Method: left medial zygoma.Photo-Documentation:.6.Rule-Out Basal Cell CarcinomaCounselingBiopsy by Shave Method: right medial inferior chest.Photo-Documentation:.7.Seborrheic KeratosisCounseling8.Seborrheic DermatitisCounseling Plan of Care Future visit for 09/09/2025 - Follow up in 1 month for: Focused Visit. Other Instructions: 10FU, Will call pt with bx results. Other Instructions: 10FU, Will call pt with bx results. Code Detail Instructions [id number] triamcinolone aceton sissy 0.1 % topical cream Apply 1 g topically BID. And apply usual moisturizer over the triamcinolone cream as instructed. 141849 fexofenadine 180 mg tablet Take one tablet by mouth once daily for itchy rash. 9248539 triamcinolone aceton sissy 0.1 % topical cream Apply twice daily to rash for 2 weeks on, then take 1 week off. Repeat as needed. 110051 hydroxyzine HCl 10 mg tablet Adis e 1 tablet by mouth at dinner time for itch relief. 481686 ketoconazole 2 % topical cream A pply twice daily to rash on chest and behind ears 8208951 doxycycline hyclate 100 mg capsu le Take 1 capsule by mouth twice daily X 5 days with food and water 20300528 ketoconazole 2 % topical cream A pply twice daily to rash on chest and behind ears Instructions * I counseled the patient regarding the following:Skin Care: Patients with a history of melanoma should wear broad spectrum sunscreen and sun protective clothing.Expectations: Scars from excisional sites of melanoma should be monitored for any recurrences. Monthly self-skin checks should be performedto monitor for any moles that change in size, shape or color, itch burn or bleed.Contact Office if:Patient notices any new or changing moles, develops constitutional symptoms or develops new lesionswithin or around the previous melanoma scar. * I counseled the patient regarding the following:Skin Care: Patients with a history of non-melanoma skin cancer should wear broad spectrum sunscreen and sun protective clothing.Expectations: Scars from excisional sites of non- melanoma skin cancers should be monitored for any recurrences.Contact Office if: If the patient notices discoloration or a bump arising from a previously stable scar or any new lesions that are not healing. * I counseled the patient regarding the following:Skin Care: Patients with a family history of melanoma should wear broad spectrum sunscreen and sun protective clothing.Expectations: Patients with a family history of melanoma from a 1st degree relative have a higher risk of developing a melanoma maki red with the rest of the population. Monthly self-skin checks should be performed to monitor for any moles that change in size, shape or color, itch burn or bleed.Contact Office if: Patient notices any new or changing moles. * I counseled the patient regarding the following:Skin Care: Scars become less noticeable over time.Expectations: Scars are permanent causey on the body commonly seen after trauma or surgical procedures. Scars from excisional sites should be monitored for any recurrences.Contact Office if: If you notice discoloration or a bump arising from a previously stable scar.I recommended the following: Broad Spectrum Sunscreen SPF 30+ * I counseled the patient regarding the following:Instructions: Basal Cell Carcinoma can be removed via surgical excision, radiation therapy, eletrodessication and curretage, Mohs surgery.Expectations:Basal Cell Carcinoma is the most common form of skin cancer. It is a very high cure rate and prognosis with removal is excellent.Contact Office if: patient develops any new lesions that fail to heal,ulcerate or bleed.I recommended the following: Broad Spectrum Sunscreen SPF 30+ * I counseled the patient regarding the following:Instructions: Basal Cell Carcinoma can be removed via surgical excision, radiation therapy, eletrodessication and curretage, Mohs surgery.Expectations:Basal Cell Carcinoma is the most common form of skin cancer. It is a very high cure rate and prognosis with removal is excellent.Contact Office if: patient develops any new lesions that fail to heal,ulcerate or bleed.I recommended the following: Broad Spectrum Sunscreen SPF 30+ * I counseled the patient regarding the following:Skin Care: Seborrheic Keratoses are benign. No treatment is necessary.Expectations: Seborrheic Keratoses are benign warty growths. Patients get more ofthem with time. * I counseled the patient regarding the following:Skin care: Emollients, shampoos with tar, selenium or zinc pyrithione can improve seborrheic dermatitis.Expectations: Seborrheic Dermatitis is chronic in nature with periods of remissions and flares. Flares can be triggered by stress.Contact office if: Seborrheic dermatitis worsens, or fails to improve despite several months of treatment.I recommended the following: Topical Steroids Social History Code Activity Start Date End Date 8458935 (SNOMED) Former smoker Sex male Sexual orientation Unspecified Gender identity Unspecified Vital Signs No data
[2025-08-13 13:20] LABS: MANUAL DIFF FLAG NO
[2025-08-13 13:35] LABS: Hematocrit 43.9 % (42.0-52.0); Hemoglobin 14.4 g/dl (14.0-18.0); Imm Gran Abs Auto 0.02 X10*3/uL (0.00-0.03); Imm Gran Pct Auto 0.3 % (0.0-0.4); Lymphocytes Absolute Auto 1.1 X10*3/uL (1.2-4.9); Mean Corpuscular HGB Conc 32.8 g/dl (31.0-36.0); Mean Corpuscular Hemoglobin 28.8 pg (27.0-33.0); Mean Corpuscular Volume 87.8 fL (80.0-98.0); NRBC Abs Auto 0.000 X10*3/uL (0.0-0.012); NRBC Pct Auto 0.0 /100WBC (0.0-0.2); Platelet Count 167 X10*3/uL (160-400); Red Blood Count 5.00 X10*6/uL (4.60-5.80); White Blood Count 6.2 X10*3/uL (4.8-10.8)
[2025-08-13 14:16] LABS: Alanine Aminotransferase 13 U/L (0-40); Albumin Level 4.0 g/dL (3.5-5.0); Alkaline Phosphatase 69 U/L (39-117); Anion Gap 15 (12-20); Aspartate Amino Transferase 27 U/L (5-37); Blood Urea Nitrogen 23 mg/dL (9-16); Calcium 9.1 mg/dL (8.4-10.2); Carbon Dioxide 23 mmol/L (22-29); Chloride 106 mmol/L (96-108); Cholesterol 147 mg/dL (<200); Estimated Glomerular Filt Rate 38; HDL Cholesterol 46 mg/dL (>40); Potassium 4.4 mmol/L (3.3-5.1); Sodium 140 mmol/L (135-145); Total Protein 7.3 g/dL (6.5-8.0); Triglycerides 88 mg/dL (<150)
== END 2025-08-13 09:41 | disposition home or self-care (01) ==
LOC: CF 09:40
PROVIDERS: PCP Internal Medicine; Visit Provider Internal Medicine
DX: Z00.01 Encounter for general adult medical examination with abnormal findings (principal); N18.4 Chronic kidney disease, stage 4 (severe); E78.9 Disorder of lipoprotein metabolism, unspecified; I48.11 Longstanding persistent atrial fibrillation; I42.8 Other cardiomyopathies; E66.01 Morbid (severe) obesity due to excess calories; Z79.01 Long term (current) use of anticoagulants; Z79.899 Other long term (current) drug therapy; Z68.41 Body mass index [BMI] 40.0-44.9, adult
CPT/HCPCS: 36415; 80053; 80061; 84443; 85025; 96127; 99397

== ENCOUNTER 2025-08-13 09:40 | Outpatient (AMB) | payer MEDICARE, SELFPAY ==
[2025-08-13 09:43] VITALS: BP 138/66; PULSE 71; RESP 17; TEMP 36.4; O2SAT 97; BMI 43.6
--- NOTE | 2025-08-13 09:43 | A.OFFPC_ITS ---
Vital Signs 08/13/25 09:43 Height 5 ft 4 in Weight 254 lb BMI 43.6 BP 138/66 Blood Pressure Location Rt brachial Position Sitting Respiration 17 Pulse 71 Pulse Source Pulse Oximeter Temp 97.5 F Temp Source Oral Pulse Oximetry (%) 97 Oxygen Delivery Method Room Air Intake Visit Reasons: Annual PE Health Outcomes Liaison Required: No Allergies No Known Allergies (No Known Allergies*) Allergy (Mild, Verified 08/13/25 09:48) NONE Medication List - Last Reconciled 08/13/25 by Julissa Dooley MD amiodarone 200 mg PO DAILY atorvastatin 40 mg PO BEDTIME calcitriol 0.25 mcg PO 3XW cholecalciferol (vitamin D3) 50 mcg PO DAILY furosemide 20 mg PO BID lisinopril 2.5 mg PO DAILY meclizine 12.5 mg PO DAILY PRN metoprolol succinate ER 100 mg PO DAILY omeprazole 20 mg PO BID spironolactone 12.5 mg PO DAILY vit C,E,Zn,Qj--bwd-zeax 250-2.5-0.5 mg caps PO warfarin 5 mg PO Q OTHER DAY Tobacco use date assessed: 08/13/25 Fall risk assessment: No Falls in past year Last assessed Fall Risk: 08/13/25 Dental Screening Dental Screen Date: 08/13/25 Did you have a dental visit in the last 12 months?: Yes Did you have a dental problem in the last 6 months where you did not have access to dental care?: No Was dental information given to patient?: Patient has dentist HPI Annual PE HPI Details History of Present Illness The patient is an 80-year-old male presenting for a physical exam and management of atrial fibrillation. Atrial Fibrillation (AFib): - Experienced a recurrence of atrial fib rillation recently. - Underwent a cardiac inversion on , which reverted temporarily but relapsed after a few days. - Currently on amiodarone, initially at 100 mg, recently increased to 200 mg; however, the patient reports it does not seem to be effective. - Subassembly Supervisor consultation is sc heduled for September 21 Morbid Obesity: - The patient's BMI is 43.6. Gastroesophageal Reflux Disease (GERD): - Reports a history of choking episodes and a sore throat, leading to a CT scan which returned clear, and follow-up with an ENT specialist. - Increased to omeprazole twice daily fo llowing the recommendation of an ENT specialist after a swallow test showed no major abnormalities. - The patient reports a noticeable impro vement in symptoms after following dietary advice to eat slowly, chew well, and drink fluids while eating. History of Melanoma: - The patient is followed by a dermatolo gist due to history of melanoma, without current specific issues mentioned. Medical History: - Atrial Fibrillation - Morbid Obesity - Gastroesophageal Reflux Disease (GERD) - History of Melanoma Social History: - Lives alone - Assists himself with a cane due to a p revious back accident. - Son helps him with administrative task s. Health Maintenance - Received flu and COVID-19 vaccines on July 05. - Recent swallow test was clear which wa s conducted following an ENT consultation. [place] of Care - Cardiology: Dr. Roth at [facility] - Nephrology: Dr. Fowler - Dermatology: Dr. Nolen due to hist ory of melanoma - ENT consultation with ENT in [facility] - Subassembly Supervisor: Dr. Garcia Patient Instructions - Maintain omeprazole twice daily unless directed otherwise by the specialist. - Follow the ENT's advice to eat slowly, chew thoroughly, and drink fluids during meals. - Attend the scheduled appointment with Dr. Garcia on September 21 regarding A Fib management. - Blood test to be conducted today for m onitoring electrolytes due to importance in managing heart rhythm. Review of Systems - General: No fever no chills - Neurological: No headaches no dizzin ess - Ear nose throat: No sore throat no hearing difficulty no ear pain - Gastrointestinal: No nausea vomiting or diarrhea - Endocrine: No polyuria polydipsia no heat intolerance - Genitourinary: No dysuria - Skin: No new complaints Physical Exam General: Cooperative, healthy appearing, comfortable, no acute distress, morbidly obese Orientation: Patient oriented x3 Head: Normal to inspection Ears: Within normal limit visually Nose: Normal external nose present Face and sinus: Normal facial exam Eyes: Appearance normal, extraocular movement intact pupils reactive Neck: Normal visual inspection and supple, thyroid is fine Respiratory: Normal respiratory effort and able to speak in complete sentences. Clear to auscultation, no stridor, lungs are clear Cardiovascular: S1 and S2 RRR, patient has AFib and has a defibrillator GI: Normal to inspection. Soft to palpation and nontender Neuro: Patient oriented x3, motor intact, Balance off, risk for fall Extremities: Normal to inspection, left side mild ankle swelling . [facility] Medical History History of GI bleed Social History Housing: House Alcohol intake: former Patient Tobacco Use Status: Former Tobacco user e-Cigarette/Vaping Use: Never Used Current occupational status: retired Cognitive needs: No Hearing needs: No Vision needs: Yes Questionnaire PHQ-9 Over the last 2 weeks, how often have you been bothered by any of the following problems? 1. Little interest or pleasure in doing things: not at all 2. Feeling down, depressed, or hopeless: not at all 3. Trouble falling or staying asleep, or sleeping too much: not at all 4. Feeling tired or having little energy: not at all 5. Poor appetite or overeating: not at all 6. Feeling bad about yourself - or that you are a failure or have let yourself or your family down: not at all 7. Trouble concentrating on things, such as reading the newspaper or watching television: not at all 8. Moving or speaking so slowly that other people could have noticed. Or the opposite - being so fidgety or restless that you have been moving around a lot more than usual: not at all 9. Thoughts that you would be better off or of hurting yourself in some way: not at all Total score: 0 Depression Screening Interpretation: Negative Depression Screening Done: Yes 66062 - PHQ-9 Billing: Yes Source: Developed by Drs. Shane Eid, Emily Knox, Alessandro Gonzalez and colleagues, with an educational patricia from [employer] Thrive Questionnaire Date Thrive assessed: 08/05/24 DYLLAN-7 AMB Questionnaire DYLLAN-7 Date DYLLAN - 7 assessed: 08/05/24 Source: Developed by Drs. Shane Eid, Emily Knox, Alessandro Gonzalez and colleagues, with an educational patricia from [employer] Physical exam (Primary Care) Vital Signs: Last Vital Signs Temp 97.5 F 08/13/25 09:43 Pulse 71 08/13/25 09:43 Resp 17 08/13/25 09:43 BP 138/66 08/13/25 09:43 Pulse Ox 97 08/13/25 09:43 Oxygen Delivery Method Room Air 08/13/25 09:43 BMI result Body Mass Index 43.6 Tobacco/Smoking Status: Tobacco use Status Tobacco use date assessed 08/13/25 08/13/25 09:45 Patient Tobacco Use Status Former Tobacco user 08/13/25 09:45 e-Cigarette/Vaping Use Never Used 08/13/25 09:45 PHQ-9: PHQ-9 Score PHQ-9: Total score 0 08/13/25 10:49 Depression Screening Interpretation: Negative Thrive Assessment: Date of Thrive Assessment Date Thrive assessed 08/05/24 08/13/25 09:45 Coding Level of Care Code Est Pt Level 3 (74240) Est Pt Prev Care >65y(57328) Diagnoses Encounter for general adult medical examination with abnormal findings Z00.01 Chronic kidney disease, stage 4 (severe) N18.4 Lipid disorder E78.9 Longstanding persistent atrial fibrillation I48.11 Atrial fibrillation type: longstanding persistent Other cardiomyopathy I42.8 Cardiomyopathy type: other Morbid obesity due to excess calories E66.01 Additional Codes PHQ-9 - 79273 - PHQ-9 Billing: Yes ([id number]) Assessment & Plan Assessment & Plan (1) Encounter for general adult medical examination with abnormal findings: Code(s): Z00.01 - Encounter for general adult medical examination with abnormal findings Category: Medical (2) Chronic kidney disease, stage 4 (severe): Code(s): N18.4 - Chronic kidney disease, stage 4 (severe) Category: Medical (3) Lipid disorder: Code(s): E78.9 - Disorder of lipoprotein metabolism, unspecified Category: Medical (4) Atrial fibrillation: Code(s): I48.91 - Unspecified atrial fibrillation Category: Medical Qualifiers: Atrial fibrillation type: longstanding persistent Qualified Code(s): I48.11 - Longstanding persistent atrial fibrillation (5) Cardiomyopathy: Code(s): I42.9 - Cardiomyopathy, unspecified Category: Medical Qualifiers: Cardiomyopathy type: other Qualified Code(s): I42.8 - Other cardiomyopathies (6) Morbid obesity due to excess calories: Code(s): E66.01 - Morbid (severe) obesity due to excess calories Category: Medical Plan Atrial Fibrillation (AFib): - Experienced a recurrence of atrial fibrillation recently. - Underwent a cardiac inversion on May 21, which reverted temporarily but relapsed after a few days. - Currently on amiodarone, initially at 100 mg, recently increased to 200 mg; however, the patient reports it does not seem to be effective. - Subassembly Supervisor consultation is scheduled for September 21 Morbid Obesity: - The patient's BMI is 43.6. Gastroesophageal Reflux Disease (GERD): - Reports a history of choking episodes and a sore throat, leading to a CT scan which returned clear, and follow-up with an ENT specialist. - Increased to omeprazole twice daily following the recommendation of an ENT specialist after a swallow test showed no major abnormalities. - The patient reports a noticeable improvement in symptoms after following dietary advice to eat slowly, chew well, and drink fluids while eating. History of Melanoma: - The patient is followed by a recreation leader due to history of melanoma, without current specific issues mentioned. Medical History: - Atrial Fibrillation - Morbid Obesity - Gastroesophageal Reflux Disease (GERD) - History of Melanoma Social History: - Lives alone - Assists himself with a cane due to a previous back accident. - Son helps him with administrative tasks. Health Maintenance - Received flu and COVID-19 vaccines on July 05. - Recent swallow test was clear which was conducted following an ENT consultation. Patient Instructions - Maintain omeprazole twice daily unless directed otherwise by the specialist. - Follow the ENT's advice to eat slowly, chew thoroughly, and drink fluids during meals. - Attend the scheduled appointment with Dr. Garcia on September 21 regarding AFib management. - Blood test to be conducted today for monitoring electrolytes due to importance in managing heart rhythm. . Orders: Orders Complete Blood Count Auto Diff 08/13/25 E66.01 - Morbid (severe) obesity due to excess calories, E78.9 - Disorder of lipoprotein metabolism, unspecified, I42.8 - Other cardiomyopathies, I48.11 - Longstanding persistent atrial fibrillation, N18.4 - Chronic kidney disease, stage 4 (severe), Z00.01 - Encounter for general adult medical examination with abnormal findings Lipid Panel 08/13/25 E66.01 - Morbid (severe) obesity due to excess calories, E78.9 - Disorder of lipoprotein metabolism, unspecified, I42.8 - Other cardiom yopathies, I48.11 - Longstanding persistent atrial fibrillation, Z00.01 - Encounter for general adult medical examination with abnormal findings TSH reflex Free T4 08/13/25 E66.01 - Morbid (severe) obesity due to excess calories, E78.9 - Disorder of lipoprotein metabolism, unspecified, I42.8 - Other cardiomyopathies, I48.11 - Longstanding persistent atrial fibrillation, N18.4 - Chronic kidney disease, stage 4 (severe), Z00.01 - Encounter for general adult medical examination with abnormal findings Comprehensive [place]. Panel Fast 08/13/25 E66.01 - Morbid (severe) obesity due to excess calories, E78.9 - Disorder of lipoprotein metabolism, unspecified, I42.8 - Other cardiomyopathies, I48.11 - Longstanding persistent atrial fibrillation, Z00.01 - Encounter for general adult medical examination with abnormal findings Medications: Changed From omeprazole 20 mg PO DAILY 90 days 90 caps 0RF To omeprazole 20 mg PO BID
--- OUTSIDE RECORDS SUMMARY | 2025-08-13 10:43 | XMS_ITS | Clinical Summary ---
Author Organization [address] [facility] Address [address] [place] [address] Phone Care Team Providers Care Hot Patcher Name Role Phone Julissa Dooley MD Primary Care Provider [phone] Allergies No known active allergies Medications meclizine (ANTIVERT) 12.5 mg tablet Take 1 tablet (12.5 mg total) by mouth as needed. Active omeprazole (PriLOSEC) [address] capsule Take 1 Cap by mouth daily. 1 Cap daily. 015 Active calcitrioL (ROCALTROL) 0.25 mcg capsule Take 1 capsule (0.25 mcg total) by mouth 1 (one) time each day. Active warfarin (COUMADIN) 5 mg tablet TAKE 1 TO 2 TABLETS BY MOUTH DAILY DIRECTED BY PVCARDIOLOGY 200 tablet 3 025 Active triamcinolone (KENALOG) 0.1 % cream APPLY 1 GRAM TOPICALLY AFFECTED AREA S) TWO TIMES A DAY .APPLY USUAL MOISTURIZER OVER THE TRIAMCINOLONE CREAM DIRECTED 025 Active lisinopriL (PRINIVIL,ZESTR IL) 2.5 mg tablet TAKE 1 TABLET BY MOUTH DAILY 100 tablet 2 025 Active spironolactone (ALDACTONE) 25 mg tablet TAKE ONE-HALF TABLET BY MOUTH DAILY 50 tablet 2 025 Active furosemide (LASIX) 20 mg tablet TAKE 2 TABLETS BY MOUTH DAILY 200 tablet 2 025 Active amiodarone (PACERONE) 200 mg tabletIndicatio ns:Atrial fibrillation with RVR (CMS/HCC V24, [facility] V28) Take 1 tablet (200 mg total) by mouth 1 (one) time each day. 30 each 5 025 2025 Active atorvastatin (LIPITOR) 40 mg tablet TAKE 1 TABLET BY MOUTH DAILY 100 tablet 2 Active metoprolol succinate (TOPROL-XL) 100 mg 24 hr tablet TAKE 1 TABLET BY MOUTH DAILY 100 tablet 2 Active atorvastatin (LIPITOR) 40 mg tablet TAKE 1 TABLET BY MOUTH DAILY 100 tablet 2 025 2024 Discontinued metoprolol succinate (TOPROL-XL) 100 mg 24 hr tablet TAKE 1 TABLET BY MOUTH DAILY 100 tablet 2 2024 Discontinued Active Problems Problem Noted Date Diagnosed Date Morbid obesity with BMI of 4 0.0-44.9, adult ([facility] V24, [facility] V28) 07/23/2024 CAD (coronary artery disease) 06/07/2022 Overview (07/23/2024): Last Assessment & Plan: Denies any anginal symptoms. Continue aspirin, statin and beta-eugenio therapy. Instructed to go to the emergency room should he experience chest pain or pressure lasting greater than 10 minutes that does not resolve with rest. Assessment & Plan (06/15/2025 9:56 AM EDT): Patient denies any anginal symptoms at this time. He will continue on statin and beta-eugenio therapy. Instructed to call 911 or go to the emergency room should the patient begin to experience chest pain or pressure lasting greater than 10 minutes does not resolve with rest. 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 He states that his shortness of breath has been stable. Continues on GDMT of metoprolol, Lasix, spironolactone and lisinopril. Encouraged to perform daily weights and to call our office should he experience a weight gain of 2 pounds in 1 day or 5 pounds in 5 days with associated shortness of breath, peripheral edema or abdominal distention. He was encouraged to continue to follow a low- sodium diet. Mixed hyperlipidemia 03/22/2021 Overview (07/23/2024): Last Assessment & Plan: Continue Lipitor 40 mg and be mindful of his dietary fat intake. Assessment & Plan (06/15/2025 9:56 AM EDT): Continue on Lipitor 40 mg and be mindful of dietary fat intake. Goal LDL less than 70 Atrial fibrillation with RVR (CMS/HCC V24, CMS/H CC V28) 02/09/2021 Overview (07/23/2024): Coagulated with Coumadin Rhythm control strategy with amiodarone Cardioversion February 24, 2021 Last Assessment & Plan: Continue with amiodarone therapy for rhythm control. Anticoagulated on Coumadin for stroke reduction as well as LV thrombus. [id number] score is 4 for heart failure, hypertension and age greater than 75. Educated on risks and benefits of continuing with anticoagulation including increased dose for hemorrhage and decreased risk for stroke. Encouraged to seek emergent medical attention should he sustain a fall involving head strike. He understands these risks and agrees to continue. Will continue to monitor his overall atrial fibrillation burden via his Biotronik remote device. Assessment & Plan (06/15/2025 9:56 AM EDT): Patient denies perception of arrhythmia. We did discuss options for managing his atrial fibrillation including watchful waiting, increasing amiodarone to 200 mg with a repeat cardioversion and meeting with our EP service for ablation. At this time, the patient would like to increase his amiodarone to 200 mg. We will evaluate whether or not he spontaneously converts via his Biotronik remote device. Within 2 months, should the patient remain in persistent atrial fibrillation he would consider repeat cardioversion. He will reach out to our office should he begin to experience any shortness of breath, palpitations, fatigue or peripheral edema. He will continue to be anticoagulated with Coumadin. Educated on risks and benefits of continuing with anticoagulation including increased risk for hemorrhage and decreased risk for stroke. Encouraged to seek emergent medical attention should the patient sustain a fall involving a head strike. The patient understands these risks and agrees to continue. Orders: ECG 12 lead amiodarone (PACERONE) 200 mg tablet; Take 1 tablet (200 mg total) by mouth 1 (one) time each day. Assessment & Plan (02/18/2025 10:07 AM EDT): Orders: ECG 12 lead Lipid panel with reflex to direct LDL; Future XR Chest 2 Views; Future Left ventricular thrombus 02/09/2021 Overview (07/23/2024): Last Assessment & Plan: Continue on Coumadin. Assessment & Plan (06/15/2025 9:56 AM EDT): Continue to anticoagulated warfarin. Thrombosis 09/12/2020 BPH (benign prostatic hyperplasia) 01/24/2015 GERD (gastroesophageal reflux disease) 4 HTN (hypertension) 08/16/2014 Overview (07/23/2024): Last Assessment & Plan: Acceptable during today's exam with a reading of 130/65. I have made no changes to his antihypertensive medications. He will continue on his current dose of lisinopril and continue with diet lifestyle modification to help further assist in reducing blood pressure. Encouraged to follow low-salt low-fat diet, make purposeful strides towards weight loss and engage in routine aerobic exercise as tolerated. Encounters Date Type Department Care Team Description 08/09/2025 Anticoagulation - Warfarin Visit [facility] [address] [facility] [address] [place] [address] Lisbeth Soto MD Thrombosis (Primary Dx) 08/03/2025 1:20 PM EDT Ancillary Procedure [facility] [address] [facility] [address] [place] [address] 08/03/2025 10:14 AM EDT - 08/03/2025 11:59 PM EDT Hospital Encounter [facility] Xray [address] [place] [phone] Kanwal Andujar, DAWSON Dysphagia, pharyngeal (Primary Dx); Dysphagia, unspecified Discharge Disposition: Home or Self Care 08/03/2025 Telephone [facility] [address] [place] [phone] Katherine Ramirez PA 08/02/2025 Anticoagulation - Warfarin Visit [facility] - [address] [place] [phone] Yasmany Roth MD Thrombosis (Primary Dx) 07/26/2025 Anticoagulation - Warfarin Visit [facility] - [address] [place] [phone] Yasmany Roth MD Thrombosis (Primary Dx) 07/19/2025 Anticoagulation - Warfarin Visit [facility] - [address] [place] [phone] Yasmany Roth MD Thrombosis (Primary Dx) 07/12/2025 Anticoagulation - Warfarin Visit [facility] - [address] [place] [phone] Yasmany Roth MD Thrombosis (Primary Dx) 07/05/2025 Anticoagulation - Warfarin Visit [facility] - [address] [place] [phone] Yasmany Roth MD Thrombosis (Primary Dx) 06/28/2025 9:33 AM EDT - 06/28/2025 11:37 AM EDT Emergency [facility] Emergency [address] [place] [phone] Fred Ortega MD Dysphagia, unspecified type (Primary Dx) Discharge Disposition: Home or Self Care 06/28/2025 Anticoagulation - Warfarin Visit [facility] - [address] [place] [phone] Yasmany Roth MD Thrombosis (Primary Dx) 06/22/2025 Anticoagulation - Warfarin Visit [facility] - [address] [place] [address] Yasmany Roth MD Thrombosis (Primary Dx) 06/15/2025 9:40 AM EDT Office Visit [facility] - [address] [place] [address] Cynthia Gomes NP Atrial fibrillation with RVR (CMS/HCC V24, CMS/HCC V28) (Primary Dx); Coronary artery disease due to lipid rich plaque; Left ventricular thrombus; Mixed hyperlipidemia 06/15/2025 Telephone [facility] - [address] [place] [address] Cynthia Gomes NP 06/14/2025 Anticoagulation - Warfarin Visit [facility] - [address] [place] [address] Yasmany Roth MD Thrombosis (Primary Dx) 06/08/2025 11:30 AM EDT Ancillary Procedure [facility] - [address] [place] [address] 06/07/2025 Anticoagulation - Warfarin Visit [facility] - [address] [place] [address] Yasmany Roth MD Thrombosis (Primary Dx) 06/03/2025 11:25 AM EDT Ancillary Procedure [facility] - [address] [place] [address] 06/03/2025 Telephone [facility] - [address] [place] [address] Katherine Ramirez PA 06/02/2025 9:30 AM EDT Ancillary Procedure [facility] - [address] [place] [phone] 05/31/2025 Anticoagulation - Warfarin Visit [facility] - [address] [place] [phone] Yasmany Roth MD Thrombosis (Primary Dx) 05/27/2025 Telephone [facility] - [address] [place] [address] Yasmany Roth MD 05/26/2025 Telephone [facility] - [address] [place] [address] Savanah Mcmahan [place] 05/24/2025 Anticoagulation - Warfarin Visit [facility] - [address] [place] [address] Yasmany Roth MD Thrombosis (Primary Dx) 05/21/2025 2:02 PM EDT Anesthesia Event [facility] [employer] [address] [address] [place] [address] Toy Byrne MD 05/21/2025 12:43 PM EDT - 05/21/2025 11:59 PM EDT Hospital Encounter [facility] [employer] [address] [place] [address] Yasmany Roth MD Gomes, Sheldon B, MD Atrial fibrillation with RVR (CMS/HCC V24, CMS/HCC V28) Discharge Disposition: Home or Self Care 05/17/2025 Anticoagulation - Warfarin Visit [facility] - [address] [place] [address] Yasmany Roth MD Thrombosis (Primary Dx) 05/13/2025 11:20 AM EDT Ancillary Procedure [facility] - [address] [place] [phone] from Last 3 Months Immunizations Immunization Administration Dates Next Due Hepatitis B (Vpuboga-A-Dsugn , Recombivax HB-Adult) 19yo and older 12/15/2003,07/14/2003,06/16/2003 Moderna SARS-CoV-2 COVID-19, mRNA, LNP-S, preservative free 03/16/2021,02/16/2021 Td Tetanus diptheria (Tdvax) 7yo and older 10/05 Surgical History Surgery Date Site/Laterality Comments APPENDECTOMY PROCEDURE: HISTORICAL APPENDECTOMY HERNIA REPAIR PROCEDURE: HISTORICAL HERNIA REPAIR/ING FOOT SURGERY PROCEDURE: HISTORICAL FOOT SURGERY CARDIOVERSION DONE ON 05/21/2025 AT [facility] Family History Relation Name Status Comments Father (Age 54) BLADDER CA NCER Mother (Age 79) COLON CANC ER DX AGE 78 Social History Tobacco Use Types Packs/Day Years [...] on file Sexual Orientation Not on file Obstetrics History Last Filed Vital Signs Vital Sign Reading Time Taken Comments Blood Pressure 122/74 06/28/2025 9:29 AM EDT Pulse 93 06/28/2025 9:29 AM EDT Temperature 36.6 C (97.9 F) 06/28/2025 9:29 AM EDT Respiratory Rate 18 06/28/2025 9:29 AM EDT Oxygen Saturation 98% 06/28/2025 9:29 AM EDT Inhaled Oxygen Concentration - - Weight 119 kg (262 lb) 06/28/2025 9:29 AM EDT Height 162.6 cm (5' 4 ) 06/28/2025 9:29 AM EDT Body Mass Index 44.97 06/28/2025 9:29 AM EDT Plan of Treatment Upcoming Encounters Date Type Department Care Team (Late st Contact Info) Description 09/02/2025 8:30 AM EST Ancillary Procedure [facility] [address] [facility] [address] [place] [address] 09/21/2025 10:25 AM EST Consult [facility] [address] [facility] [address] [place] [phone] Oral Tatum MD [address] [facility] [address] [place] [address] Health Maintenance Due Date Last Done Comments Zoster Vaccines (1 of 2) 1993 RSV Immunization Adult Patients (1 - 1-dose 75+ series) 2018 Falls Risk Assessment 09/29/2022 Medicare Annual Wellness Visit 09/29/2022 Social Influencers of Health Screening 09/29/2022 Depression Screening 10/21/2024 Hypertension/CHF/CAD Annual BMP Blood Test 06/28/2026 06/28/2025, 05/17/2025, 02/18/2025, Additional history exists DTaP,Tdap,and Td Vaccines (3 - Td or Tdap) 01/31/2028 01/30/2018, 10/05/2004, 10/05/2004 Cholesterol Screening (Lipid Panel) 02/18/2030 02/18/2025, 10/18/2004 Hepatitis B Vaccines Completed 12/15/2003, 07/14/2003, 06/16/2003 Pneumococcal Vaccine: 50+ Years Completed 08/15/2018, 07/21/2014 COVID-19 Vaccine Completed 07/05/2025, 02/2024, 07/24/2023, Additional history exists Influenza Vaccine Completed 07/05/2025, , 07/24/2023, Additional history exists HIB Vaccines Aged Out No longer eligi ble based on patient's age to complete this topic HPV Vaccines Aged Out No longer eligi ble based on patient's age to complete this topic Hepatitis A Vaccines Aged Out No long er eligible based on patient's age to complete this topic IPV Vaccines Aged Out No longer eligi ble based on patient's age to complete this topic MMR Vaccines Aged Out No longer eligi ble based on patient's age to complete this topic Meningococcal ACWY Vaccine Aged Out N o longer eligible based on patient's age to complete this topic Meningococcal B Vaccine Aged Out No l onger eligible based on patient's age to complete this topic RSV Immunization Patients Under 20 months Aged Out No longer eligible based on patient's age to complete this topic Varicella Vaccines Aged Out No longer eligible based on patient's age to complete this topic Medical Devices Implanted Type Area Battery Container Finishing Hand Device Identifier Shelf Expiration Date Model / Serial / Lot Cardiac Icd-07/26/2017 Implanted:03/2017 by Oral Tatum MD (Quantity not on file) Cardiac ICD Left: Chest [employer] INTICA 7 VR-T DX / [id number] / Procedures Procedure Name Priority Date/Time Associated Diagnosis Comments PROTHROMBIN TIME WITH INR Routine 08/09/2025 CARDIAC DEVICE CHECK- REMOTE- MURJ Routine 08/03/2025 1:18 PM EDT WAXER FLOOR VIDEOFLUOROSCOPIC SWALLOW STUDY WITH BARIUM Routine 08/03/2025 11:15 AM EDT Dysphagia, unspecified XR BARIUM SWALLOW WITH VIDEO AND SPEECH Routine 08/03/2025 10:49 AM EDT Dysphagia, unspecified PROTHROMBIN TIME WITH INR Routine 08/02/2025 PROTHROMBIN TIME WITH INR Routine 07/26/2025 PROTHROMBIN TIME WITH INR Routine 07/19/2025 PROTHROMBIN TIME WITH INR Routine 07/12/2025 PROTHROMBIN TIME WITH INR Routine 07/05/2025 CT NECK SOFT TISSUE WO CONTRAST STAT 06/28/2025 10:16 AM EDT CBC WITH AUTO DIFFERENTIAL STAT 06/28/2025 9:37 AM EDT BASIC METABOLIC PANEL STAT 06/28/2025 9:37 AM EDT CBC AND DIFFERENTIAL STAT 06/28/2025 9:37 AM EDT PROTHROMBIN TIME WITH INR Routine 06/28/2025 PROTHROMBIN TIME WITH INR Routine 06/22/2025 ECG 12-LEAD Routine 06/15/2025 9:56 AM EDT Atrial fibrillation with RVR (CMS/HCC V24, CMS/HCC V28) PROTHROMBIN TIME WITH INR Routine 06/14/2025 CARDIAC DEVICE CHECK- REMOTE- MURJ Routine 06/08/2025 11:26 AM EDT PROTHROMBIN TIME WITH INR Routine 06/07/2025 CARDIAC DEVICE CHECK- REMOTE- MURJ Routine 06/03/2025 11:21 AM EDT CARDIAC DEVICE CHECK- REMOTE- MURJ Routine 06/02/2025 9:28 AM EDT PROTHROMBIN TIME WITH INR Routine 05/31/2025 ECG OUTSIDE 05/24/2025 PROTHROMBIN TIME WITH INR STAT 05/21/2025 1:28 PM EDT COMPLETE BLOOD COUNT Routine 05/17/2025 8:56 AM EDT Atrial fibrillation with RVR (CMS/HCC V24, CMS/HCC V28) BASIC METABOLIC PANEL Routine 05/17/2025 8:56 AM EDT Atrial fibrillation with RVR (CMS/HCC V24, CMS/HCC V28) PROTHROMBIN TIME WITH INR Routine 05/17/2025 CARDIAC DEVICE CHECK- REMOTE- MURJ Routine 05/13/2025 11:17 AM EDT LIPID PANEL WITH REFLEX TO DIRECT LDL Routine 02/18/2025 11:13 AM EDT Atrial fibrillation with RVR (CMS/HCC V24, CMS/HCC V28) Ischemic cardiomyopathy from Last 3 Months or Most Recently Relevant to Health Maintenance Results * Prothrombin time with INR (08/09/2025) Only the most recent of13 resultswithin the time period is included. INR 2.3 Prothrombin Time POC Blood Venous blood specimen / Unknown 08/09/2025 us Historical Provider LAB BLOOD ORDERABLES Shira l Result * Cardiac device check - Remote- MURJ (08/03/2025 1:18 PM EDT) Only the most recent of5 resultswithin the time period is included. Date Time Interrogation Session [id number] CV DEVICE CHECK Type Interrogation Session Remote CV DEVICE CHECK Implantable Pulse Generator Battery Container Finishing Hand BIO CV DEVICE CHECK Implantable Pulse Generator Type ICD CV DEVICE CHECK Implantable Pulse Generator Model Intica 7 VR-T DX CV DEVICE CHECK Implantable Pulse Generator Serial Number [id number] CV DEVICE CHECK Implantable Pulse Generator Implant Date [id number] CV DEVICE CHECK Battery Remaining Percentage 35.00 CV DEVICE CHECK Battery Voltage 3.040 CV D EVICE CHECK Battery X RAY PHYSICIAN Trigger 2.850 CV DEVICE CHECK Battery Status Middle of Service CV DEVICE CHECK Capacitor Charge Time 10.600 CV DEVICE CHECK Jeremi Statistic RV Percent Paced 2.00 CV DEVICE CHECK Atrial Tachy Statistic AT/AF [place] Percent 24.00 CV DEVICE CHECK Lead Channel Sensing Intrinsic Amplitude 2.200 CV DEVICE CHECK Lead Channel Setting Sensing Sensitivity 1.00 CV DEVICE CHECK Lead Channel RA Pacing Threshold Date 2025-07-30 CV DEVICE CHECK Lead Channel Sensing Intrinsic Amplitude 17.600 CV DEVICE CHECK Lead Channel Setting Sensing Sensitivity 0.80 CV DEVICE CHECK Lead Channel Impedance Value 493 CV DEVICE CHECK Lead Channel Pacing Threshold Amplitude 0.700 CV DEVICE CHECK Lead Channel Pacing Threshold Pulse Width 0.4 CV DEVICE CHECK Lead Channel RV Pacing Threshold Date 2025-07-30 CV DEVICE CHECK Lead Channel Setting Pacing Amplitude 1.700 CV DEVICE CHECK Lead Channel Setting Pacing [...] 10 CV DEVICE CHECK Date of Service 2025-09-27 CV DEVICE CHECK Anatomical Region Laterality Modality Device Interroga tion 07/30/2025 12:4 8 AM EDT Impressions 08/03/2025 1:12 PM EDT Increased AF [place] * Device diagnostics indicate increased AF burden since last check * Current AT/AF [place]: 100% * Mean ventricular rate during AF was 87 bpm, max rate of 106 bpm Narrative Procedure Note Katherine Ramirez PA - 08/03/2025 IMPRESSION: Increased AF [place] * Device diagnostics indicate increased AF burden since last check * Current AT/AF [place]: 100% * Mean ventricular rate during AF was 87 bpm, max rate of 106 bpm Katherine FIGUEROA CV IMPLANTABLE CARDIAC DEVICE TN OCEDURES Final Result * WAXER FLOOR videofluoroscopic swallow study with barium (08/03/2025 11:15 AM EDT) Kanwal Diana, DAWSON - 08/03/2025 11:15 AM EDT DAWSON Jones 08/03/2025 3:31 PM Speech/Language Pathology OUTPATIENT MODIFIED BARIUM SWALLOW STUDY/ VIDEOFLUOROSCOPIC EVALUATION OF THE SWALLOW NAME: Tee Cole DATE OF : 1945 DATE: 08/03/2025 RECOMMENDATIONS: Recommendations/Treat Solid Consistency: IDDSI Level 7 Regular Liquid Consistency: Thin liquids Liquid Administration Via: Cup, Straw Recommended Medication Route: PO Supervision: Independent Compensations: Small sips/bites, Alternating liquids and solids TREATMENT RECOMMENDATIONS: Evaluation Only - No Additional Skilled WAXER FLOOR Needs Indicated at this time. Summary and Impressions: Tee Cole is a 80 y.o. who presents with Within Normal Limits Oropharyngeal Swallow Function. No pharyngeal residue and no tracheal aspiration. Discussed effects from GERD on swallow function. Provided education on eating slowly and taking small bites, limiting distractions. TIME IN: 1000 TIME OUT: 1030 MINUTES: 30 POST MANAGER REQUIRED: No GENERAL INFORMATION: Ordering Physician: Malik Varela DO Radiologist: Selma Boyd Date of Evaluation: 08/03/25 Type of Study: Initial MBS Reason for Study: Feeling like food gets stuck in the lower throat. Pt had x 1 choking episode with food was alone and able to cough it out. Diet Prior to this Study: regular/thin liquids Dysphagia Diagnosis: Within Functional Limits SUBJECTIVE: Pleasant, ambulated with a cane. Adequate historian. Dysphagia, unspecified [R13.10] WAXER FLOOR VIDEOFLUOROSCOPIC SWALLOW STUDY WITH BARIUM [[id number]] XR BARIUM SWALLOW WITH VIDEO AND SPEECH [[id number]] ALLERGIES: Allergies[1] OBJECTIVE Respiratory status: Room air DYSPHAGIA HISTORY/PREVIOUS MBSs none DYSPHAGIA SYMPTOMS REPORTED: Difficulty swallowing food MENTAL STATUS: Alert , Responsive, and Cooperative Oral/Motor: Oral Motor Comments: Oral motor skills WNL Fluoroscopy View: Lateral Position during Eval: Upright in chair CONSISTENCIES TRIALED FOOD: IDDSI Level 7 Regular and IDDSI Level 4 Puree LIQUID: IDDSI Level 3 Moderately Thick, IDDSI Level 2 Mildly Thick, and IDDSI Level 0 Thin BARIUM TABLET: whole Oral Phase: Oral Phase: Within Functional Limits (normal oral transit and clearance) Pharyngeal Phase: Pharyngeal Phase: Within Functional Limits (normal pharyngeal transit. No tracheal aspiration. Pharyngeal residue cleared) Pharyngeal Phase: Within Functional Limits (normal pharyngeal transit. No tracheal aspiration. Pharyngeal residue cleared) Cricopharyngeal/Esophageal Phase: Cricopharyngeal Phase: Within Functional Limits Complete duration and distention of the pharyngoesophageal segment with no obstruction of flow through the PES. 8- Point Penetration Aspiration Scale (PAS) Consistency- (IDDSI level) Score Comments Moderate thick liquids (3) 1- Material does not enter airway. Mildly thick liquids (2) 1- Material does not enter airway. Thin liquids (0) 1- Material does not enter airway. Puree (4) 1- Material does not enter airway. Regular solids (7) 1- Material does not enter airway. Barium tablet 1- Material does not enter airway. Other: LONDON Cao, Janell Arnett, Raeann EV, GOGO Aguilar, & GOGO Álvarez. A Penetration-Aspiration Scale. Dysphagia 11:93-98, 1996. EDUCATION Education: Education provided: Reviewed MBS video Diet Recommendations Aspiration precautions Swallow strategies Applied Knowledge, Verbal Understanding, and Demonstrated Skills Kanwal Byrne, WAXER FLOOR 08/03/2025 Please note that swallowing is a dynamic process and the skills reflected during this brief assessment may not necessarily represent the patient's swallowing function during an entire meal. Ongoing clinical judgment is strongly advised. [1] No Known Allergies Malik Varela DO WAXER FLOOR ORDERABLES Final Result * XR Barium Swallow with Video and Speech (08/03/2025 10:49 AM EDT) Anatomical Region Laterality Modality Head and Neck Radiographic Sirena ging 08/03/2025 2:40 PM EDT Impressions 08/03/2025 3:15 PM EDT Normal swallowing function. Please refer to the dedicated speech pathologist report for further details as clinically indicated. -------- FINAL REPORT -------- Dictated By: Selma Boyd Dictated Date: 08/03/2025 14:40 ET Assigned Physician: Vasile Watson Reviewed and Electronically Signed By: Vasile Watson Signed Date: 08/03/2025 15:15 ET Workstation ID: [id number] Transcribed By: Self Edit Transcribed Date: 08/03/2025 14:41 ET Resident/PA/COFFEE BREWER: Selma Boyd Narrative 08/03/2025 3:15 PM EDT CLINICAL HISTORY: dysphagia. STUDY: Modified barium swallow study COMPARISON: No prior modified barium swallow HISTORY: Patient is an 80-year-old male with positive choking, globus sensation TECHNIQUE: Multiple sequential fluoroscopic images of the lateral neck were obtained for a swallowing function study. Barium enhanced consistencies of pudding, honey, nectar, thin liquid, semi- solid, and a 13 mm barium tablet were utilized for evaluation. Examination was performed with the speech therapist present. FINDINGS: There was no evidence for penetration or aspiration of the various consistencies. 13 mm barium tablet was swallowed without difficulty with prompt passage of pill past the hypopharynx. Air Kerma: 1.75 mGy Procedure Note Vasile Watson MD - 08/03/2025 CLINICAL HISTORY: dysphagia. STUDY: Modified barium swallow study COMPARISON: No prior modified barium swallow HISTORY: Patient is an 80-year-old male with positive choking, globussensation TECHNIQUE: Multiple sequential fluoroscopic images of the lateral neckwere obtained for a swallowing function study. Barium enhancedconsistencies of pudding, honey, nectar, thin liquid, semi-solid, and a 13mm barium tablet were utilized for evaluation. Examination was performedwith the speech therapist present. FINDINGS: There was no evidence for penetration or aspiration of the variousconsistencies. 13 mm barium tablet was swallowed without difficulty withprompt passage of pill past the hypopharynx. Air Kerma: 1.75 mGy IMPRESSION: Normal swallowing function. Please refer to the dedicated speech pathologist report for furtherdetails as clinically indicated. -------- FINAL REPORT -------- Dictated By: Selma Boyd Dictated Date: 08/03/2025 14:40 ET Assigned Physician: Vasile Watson Reviewed and Electronically Signed By: Vasile Watson Signed Date: 08/03/2025 15:15 ET Workstation ID: [id number] Transcribed By: Self Edit Transcribed Date: 08/03/2025 14:41 ET Resident/PA/COFFEE BREWER: Selma Boyd Malik Varela DO IMG FLUOROSCOPY PROCEDURES Fin al Result * CT Neck Soft Tissue wo Contrast (06/28/2025 10:16 AM EDT) Anatomical Region Laterality Modality Head and Neck Computed Tomogra phy 06/28/2025 11:0 6 AM EDT Impressions 06/28/2025 11:11 AM EDT No radiodense foreign body -------- FINAL REPORT -------- Dictated By: JUAN CHAMPION Dictated Date: 06/28/2025 11:06 ET Assigned Physician: JUAN CHAMPION Reviewed and Electronically Signed By: JUAN CHAMPION Signed Date: 06/28/2025 11:11 ET Workstation ID: [id number] Transcribed By: Self Edit Transcribed Date: 06/28/2025 11:06 ET Narrative 06/28/2025 11:11 AM EDT PROCEDURE: CT neck INDICATION: Swallowed foreign body TECHNIQUE: Noncontrast CT of the neck with multiplanar reformats. The examination was performed utilizing dose reduction techniques. Total DLP 397 COMPARISON: No priors available. FINDINGS: No radiodense foreign body seen along the aerodigestive tract. No cervical lymphadenopathy or mass. No fluid collections. No peritonsillar or retropharyngeal fluid collection. Parotid and submandibular glands are within normal limits. Subcentimeter right thyroid nodule is likely benign given small size. Thyroid gland is otherwise within normal limits. Mild arterial calcifications at the carotid bulbs. Visualized intracranial structures, sinuses, and mastoids are normal. Bilateral lens implants. Orbits are otherwise normal. Degenerative changes seen throughout the cervical spine. Paraspinal muscles are normal. Left chest wall pacemaker noted. Lung apices are clear where visualized. Procedure Note Juan Champion MD - 06/28/2025 PROCEDURE: CT neck INDICATION: Swallowed foreign body TECHNIQUE: Noncontrast CT of the neck with multiplanar reformats. The examination was performed utilizing dose reduction techniques. TotalDLP 397 COMPARISON: No priors available. FINDINGS: No radiodense foreign body seen along the aerodigestive tract. No cervical lymphadenopathy or mass. No fluid collections. No peritonsillar or retropharyngeal fluidcollection. Parotid and submandibular glands are within normal limits. Subcentimeter right thyroid nodule is likely benign given small size.Thyroid gland is otherwise within normal limits. Mild arterial calcifications at the carotid bulbs. Visualized intracranial structures, sinuses, and mastoids are normal. Bilateral lens implants. Orbits are otherwise normal. Degenerative changes seen throughout the cervical spine. Paraspinalmuscles are normal. Left chest wall pacemaker noted. Lung apices are clear wherevisualized. IMPRESSION: No radiodense foreign body -------- FINAL REPORT -------- Dictated By: JUAN CHAMPION Dictated Date: 06/28/2025 11:06 ET Assigned Physician: JUAN CHAMPION Reviewed and Electronically Signed By: JUAN CHAMPION Signed Date: 06/28/2025 11:11 ET Workstation ID: [id number] Transcribed By: Self Edit Transcribed Date: 06/28/2025 11:06 ET us Fred Ortega MD IMG CT PROCEDURES Final Res ult * CBC auto differential (06/28/2025 9:37 AM EDT) [facility] WBC 7.3 4.8 - 10.8 K/mcL LAB HEMETOLOGY METHOD 06/28/2025 9:55 AM [facility] RBC 5.00 4.50 - 5.50 M/mcL LAB HEMETOLOGY METHOD 06/28/2025 9:55 AM EDT [facility] Hemoglobin 14.7 13.5 - 17.5 g/dL LAB HEMETOLOGY METHOD 06/28/2025 9:55 AM [facility] Hematocrit 44.1 42.0 - 54.0 % LAB HEMETOLOGY METHOD 06/28/2025 9:55 AM [facility] MCV 88.6 79.0 - 98.0 FL LAB HEMETOLOGY METHOD 06/28/2025 9:55 AM [facility] MCH 29.5 27.0 - 32.0 pcg LAB HEMETOLOGY METHOD 06/28/2025 9:55 AM [facility] MCHC 33.3 32.0 - 37.0 g/dL LAB HEMETOLOGY METHOD 06/28/2025 9:55 AM [facility] RDW 13.9 11.0 - 15.0 % LAB HEMETOLOGY METHOD 06/28/2025 9:55 AM [facility] Platelets 190 130 - 400 K/mcL LAB HEMETOLOGY METHOD 06/28/2025 9:55 AM [facility] MPV 9.6 7.0 - 11.0 FL LAB HEMETOLOGY METHOD 06/28/2025 9:55 AM [facility] NRBC 0.0 <1.0 % LAB HEMETOLOGY METHOD 06/28/2025 9:55 AM [facility] NRBC Absolute 0.00 <0.10 K/mcL LAB HEMETOLOGY METHOD 06/28/2025 9:55 AM [facility] Neutrophils Relative 75.0 % LAB HEMETOLOGY METHOD 06/28/2025 9:55 AM [facility] Lymphocytes Relative 15.3 % LAB HEMETOLOGY METHOD 06/28/2025 9:55 AM [facility] Monocytes Relative 7.9 % LAB HEMETOLOGY METHOD 06/28/2025 9:55 AM [facility] Eosinophils Relative 0.8 % LAB HEMETOLOGY METHOD 06/28/2025 9:55 AM [facility] Basophils Relative 0.6 % LAB HEMETOLOGY METHOD 06/28/2025 9:55 AM [facility] Immature Granulocytes Relative 0.4 % LAB HEMETOLOGY METHOD 06/28/2025 9:55 AM [facility] Neutrophils Absolute 5.44 1.50 - 7.00 K/mcL LAB HEMETOLOGY METHOD 06/28/2025 9:55 AM [facility] Lymphocytes Absolute 1.11 1.00 - 5.00 K/mcL LAB HEMETOLOGY METHOD 06/28/2025 9:55 AM [facility] Monocytes Absolute 0.57 0.20 - 1.00 K/mcL LAB HEMETOLOGY METHOD 06/28/2025 9:55 AM [facility] Eosinophils Absolute 0.06 0.00 - 0.50 K/mcL LAB HEMETOLOGY METHOD 06/28/2025 9:55 AM [facility] Basophils Absolute 0.04 0.00 - 0.20 K/mcL LAB HEMETOLOGY METHOD 06/28/2025 9:55 AM [facility] Immature Granulocytes Absolute 0.03 0.00 - 0.03 K/mcL LAB HEMETOLOGY METHOD 06/28/2025 9:55 AM [facility] Blood Venous blood specimen / Unknown Venipuncture / Unknown 06/28/2025 9:37 AM EDT 06/28/2025 9:48 AM EDT us Fred Ortega MD LAB BLOOD ORDERABLES Final Result [facility] [address] [place] [address], [place] [phone] * (ABNORMAL) Basic metabolic panel (06/28/2025 9:37 AM EDT) Only the most recent of2 resultswithin the time period is included. Sodium 138 133 - 145 mmol/L LAB CHEMISTRY METHOD 06/28/2025 10:12 AM [facility] Potassium 4.2 3.5 - 5.5 mmol/L LAB CHEMISTRY METHOD 06/28/2025 10:12 AM [facility] Chloride 103 96 - 110 mmol/L LAB CHEMISTRY METHOD 06/28/2025 10:12 AM [facility] CO2 25 21 - 32 mmol/L LAB CHEMISTRY METHOD 06/28/2025 10:12 AM [facility] Anion Gap 10 3 - 11 LAB CHEMISTRY METHOD 06/28/2025 10:12 AM [facility] Glucose 128(H) 70 - 100 mg/dL LAB CHEMISTRY METHOD 06/28/2025 10:12 AM [facility] BUN 29(H) 5 - 25 mg/dL LAB CHEMISTRY METHOD 06/28/2025 10:12 AM [facility] Creatinine 1.88(H) 0.70 - 1.30 mg/dL LAB CHEMISTRY METHOD 06/28/2025 10:12 AM [facility] eGFR 35(L) >=60 mL/min/1. 73m2 LAB CHEMISTRY METHOD 06/28/2025 10:12 AM EDT [facility] Comment:Calculation based on the Chronic Kidney Disease Epidemiology Collaboration (CKD-EPI) equation refit without adjustment for race. BUN/Creatinine Ratio 15.4 LAB CHEMISTRY METHOD 06/28/2025 10:12 AM EDT [facility] Calcium 8.8 8.5 - 10.5 mg/dL LAB CHEMISTRY METHOD 06/28/2025 10:12 AM EDT [facility] Blood Venous blood specimen / Unknown Venipuncture / Unknown 06/28/2025 9:37 AM EDT 06/28/2025 9:48 AM EDT Fred Ortega MD LAB BLOOD ORDERABLES Final Result Performing Organization Address City/[facility]/ZIP Co de Phone Number [facility] [address] [place] [address], [place] [phone] * ECG 12 lead (06/15/2025 9:56 AM EDT) Ventricular Rate ECG 81 BPM GEMUSE Atrial Rate 75 BPM GEMUSE QRS Duration 126 ms GEMUSE Q-T Interval 398 ms GEMUSE QTc 462 ms GEMUSE R [place] -61 degrees GEMUSE T [place] 79 degrees GEMUSE ECG Interpretation Atrial fibrillation Left axis deviation Left ventricular hypertrophy with QRS widening Cannot rule out Septal infarct (cited on or before 12-JAN-2021) Possible Lateral infarct (cited on or before 12-JAN-2021) Abnormal ECG When compared with ECG of 18-FEB-2025 09:05, Significant changes have occurred Confirmed by MD Gonzalez, Yasmany ([id number]) on 06/17/2025 9:27:38 AM GEMUSE 06/15/2025 9:43 AM EDT 06/17/2025 9:27 AM EDT Cynthia Gomes NP ECG ORDERABLES Edited Result - Final GEMUSE * ECG-Outside (05/24/2025) us Provider Onbase MD ECG ORDERABLES Final Result * (ABNORMAL) Complete blood count (05/17/2025 8:56 AM EDT) [facility] Signature WBC 7.9 4.8 - 10.8 K/mcL LAB HEMETOLOGY METHOD 05/17/2025 10:08 AM [facility] RBC 4.90 4.50 - 5.50 M/mcL LAB HEMETOLOGY METHOD 05/17/2025 10:08 AM [facility] Hemoglobin 14.1 13.5 - 17.5 g/dL LAB HEMETOLOGY METHOD 05/17/2025 10:08 AM [facility] Hematocrit 44.3 42.0 - 54.0 % LAB HEMETOLOGY METHOD 05/17/2025 10:08 AM [facility] MCV 90.8 79.0 - 98.0 FL LAB HEMETOLOGY METHOD 05/17/2025 10:08 AM [facility] MCH 28.9 27.0 - 32.0 pcg LAB HEMETOLOGY METHOD 05/17/2025 10:08 AM [facility] MCHC 31.8(L) 32.0 - 37.0 g/dL LAB HEMETOLOGY METHOD 05/17/2025 10:08 AM [facility] RDW 14.4 11.0 - 15.0 % LAB HEMETOLOGY METHOD 05/17/2025 10:08 AM [facility] Platelets 202 130 - 400 K/mcL LAB HEMETOLOGY METHOD 05/17/2025 10:08 AM [facility] MPV 10.2 7.0 - 11.0 FL LAB HEMETOLOGY METHOD 05/17/2025 10:08 AM [facility] NRBC 0.0 <1.0 % LAB HEMETOLOGY METHOD 05/17/2025 10:08 AM EDT [facility] NRBC Absolute 0.00 <0.10 K/mcL LAB HEMETOLOGY METHOD 05/17/2025 10:08 AM T [facility] Blood Venous blood specimen / Unknown Venipuncture / Unknown 05/17/2025 8:56 AM EDT 05/17/2025 8:56 AM EDT us Cynthia Gomes NP LAB BLOOD ORDERABLES F inal Result [facility] [address] [place] [address], [place] [phone] * Lipid panel with reflex to direct LDL (02/18/2025 11:13 AM EDT) Cholesterol 151 0 - 200 mg/dL LAB CHEMISTRY METHOD 02/18/2025 12:32 PM [facility] Triglycerides 105 0 - 150 mg/dL LAB CHEMISTRY METHOD 02/18/2025 12:32 PM [facility] HDL 55 >=40 mg/dL LAB CHEMISTRY METHOD 02/18/2025 12:32 PM [facility] LDL Calculated 75 0 - 100 mg/dL LAB CHEMISTRY METHOD 02/18/2025 12:32 PM [facility] VLDL Cholesterol Surinder 21 mg/dL LAB CHEMISTRY METHOD 02/18/2025 12:32 PM [facility] Non HDL Chol. (LDL+VLDL) 96 <145 mg/dL LAB CHEMISTRY METHOD 02/18/2025 12:32 PM [facility] Chol/HDL Ratio 2.7 0.0 - 4.4 LAB CHEMISTRY METHOD 02/18/2025 12:32 PM [facility] Blood Venous blood specimen / Unknown Venipuncture / Unknown 02/18/2025 11:13 AM EDT 02/18/2025 11:24 AM EDT us Yasmany Roth MD LAB BLOOD ORDERABLES Shira torres Result BRAYDON FAROOQ [place] ([facility]) [facility] [address] [place] [address], from Last 3 Months or Most Recently [place] [id number] [employer] MEDICARE Advance Directives Documents on File Type Date Recorded 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
--- OUTSIDE RECORDS SUMMARY | 2025-08-13 10:43 | XMS_ITS | Encounter Summary ---
Author Organization [facility] Address [address] [place] [address] Care Team Providers Care Hydroblaster Name Role Phone Julissa Dooley MD Primary Care Provider [phone] Encounter Details Date Type Department Care Team ([facility] Contact Info) Description 08/09/[address] - [address] [facility] [address] [facility] [address] [place] [phone] Lisbeth Soto MD [address] [facility] [address] [place] [address] Thrombosis (Primary Dx) Social History Tobacco Use Types Packs/Day Years [...] on file documented as of this encounter Functional Status * Are you deaf or do you have serious difficulty hearing? Answer Date of Assessment Author No 06/28/2025 9:38 AM Arellano RN * Are you blind or do you have serious difficulty seeing, even when wearing glasses? Answer Date of Assessment Author No 06/28/2025 9:38 AM Nisha Ramírez RN * Do you have serious difficulty walking or climbing stairs? Answer Date of Assessment Author No 06/28/2025 9:38 AM Arellano RN * Do you have serious difficulty dressing or bathing? Answer Date of Assessment Author No 06/28/2025 9:38 AM Arellano RN * Because of a physical, mental, or emotional condition, do you have serious difficulty doing errandsalone such as visiting the doctor? Answer Date of Assessment Author No 06/28/2025 9:38 AM Arellano RN documented as of this encounter Mental Status * Because of a physical, mental, or emotional condition, do you have serious difficulty concentrating, remembering, or making decisions? (5 years old or older) Answer Entry Date Author No 06/28/2025 9:38 AM Arellano RN documented in this encounter Progress Notes * Raymundo Duval MA - 08/09/2025 9:45 AM EDT Patient aware of instructions documented in this encounter Plan of Treatment Upcoming Encounters Date Type Department Care Team (Late st Contact Info) Description 09/02/2025 8:30 AM EST Ancillary Procedure [facility] [address] [place] [address] 09/21/2025 10:[address] [facility] [address] [place] [address] Oral Tatum MD [address] [place] [address] documented as of this encounter Procedures Procedure Name Priority Date/Time Associated Diagnosis Comments PROTHROMBIN TIME WITH INR Routine 08/09/2025 documented in this encounter Results * Prothrombin time with INR (08/09/2025) INR 2.3 Prothrombin Time POC Blood Venous blood specimen / Unknown 08/09/2025 Historical Provider LAB BLOOD ORDERABLES Shira l Result documented in this encounter Visit Diagnoses Diagnosis Thrombosis- Primary Embolism and thrombosis of unspecified site Encounter for adjustment or management of cardiac device documented in this encounter Care Teams Hydroblaster Relationship Specialty Start Date End Date Julissa Dooley MD [address] [place] [address] PCP - General Internal Medicine 09/19/20 documented as of this encounter
--- OUTSIDE RECORDS SUMMARY | 2025-08-13 10:43 | XMS_ITS | Clinical Summary ---
Author Organization [facility] Address [address] [address] Phone Care Team Providers Care It Administrative Assistant Name Role Phone Julissa Dooley MD Primary Care Provider [phone] Allergies No known active allergies Medications warfarin [...] day Active ergocalciferol (VITAMIN D-2) 1.25 MG (71830 UT) capsule Take 1 capsule by mouth [...] 1 CAPSULE BY MOUTH EVERY OTHER DAY 50 capsule 2 07/07/2025 Active Active Problems Problem Noted Date Diagnosed Date Renal osteodystrophy 06/07/2025 Atopic dermatitis 03/11/2025 Family history of malignant neoplasm 03/19/2024 Basal cell carcinoma of truncal skin 02/26/2023 Hypertrophic condition of skin 02/26/2023 Disorder of skin and/or subcutaneous tissue 11/22 Coronary arteriosclerosis 06/07/2022 Stage 3b chronic kidney disease 09/27/2021 Renal osteodystrophy 09/27/2021 Basal cell carcinoma of upper extremity 08/24/20 Benign essential hypertension 03/27/2021 Chronic kidney disease stage 3 03/27/2021 Chronic kidney disease stage 4 03/27/2021 Hypertensive heart and renal disease with (congestive) heart failure 03/27/2021 Ischemic cardiomyopathy 03/22/2021 Overview (03/12/2023): LVEF ~35% AMI 01/2017 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 Continue current treatment plan. Encounters Date Type Department Care Team Description 07/04/2025 Refill [facility] [address] [place] [address] Yang Robbins MD 06/07/2025 2:15 PM EDT Office Visit [facility] [address] [place] [address] Fred Fowler MD Stage 3b chronic kidney disease (HCC) (Primary Dx); Renal osteodystrophy from Last 3 Months Immunizations Immunization Administration Dates Next Due Hepatitis B 12/15/2003,07/14/2003,06/16/2003 Moderna SARS-COV-2 03/16/2021,02/16/2021 Pneumococcal Conjugate 13-Valent 08/15/2018 Td 10/05/2004 Tdap 10/05/2004 Family History Medical History Relation Comments Cancer Father Cancer Mother Hypertension Mother Relation Status Comments Father Mother Social History Tobacco Use Types Packs/Day Years Used Date Smoking Tobacco: Former Cigarettes Q uit: 10/21/1969 Smokeless Tobacco: Never Tobacco Cessation:Counseling Given: Not Answered Comments:Smoking History Info:Every day Alcohol Use Standard Drinks/Week Comments Never 0 (1 standard drink = 0.6 oz pur e alcohol) Sex and Gender Information Value Date Recorded Sex Assigned at Not on file Legal Sex Male 4:53 PM EST Gender Identity Not on file Sexual Orientation Not on file Last Filed Vital Signs Vital Sign Reading Time Taken Comments Blood Pressure 128/58 06/07/2025 2:23 PM EDT Pulse 59 06/07/2025 2:23 PM EDT Temperature - - Respiratory Rate - - Oxygen Saturation 97% 06/07/2025 2:23 PM EDT Inhaled Oxygen Concentration - - Weight 118 kg (260 lb 12.8 oz) 06/07/2025 2:23 P M EDT Height 162.6 cm (5' 4 ) 03/28/2021 10:03 AM EDT Body Mass Index 44.77 03/28/2021 10:03 AM EDT Plan of Treatment Upcoming Encounters Date Type Department Care Team (Late st Contact Info) Description 02/28/2026 1:00 PM EDT Office Visit [facility] [address] [place] [address] Fred Fowler MD [address] [facility] [address] [place] [address] Health Maintenance Due Date Last Done Comments Pneumococcal Vaccine: 50+ Years (2 of 2 - PPSV23, PCV20, or PCV21) 10/10/2018 08/15/2018 Influenza Vaccine (#1) 2025 Hepatitis B Vaccine Aged Out 12/15/2003, 07/14/2003, 06/16/2003 No longer eligible based on patient's age to complete this topic Pneumococcal Vaccine: Peds (0 to 5 Years) and At-Risk Patients (6 to 49 Years) Discontinued 08/15/2018 Insurance [facility] Medicare [facility] Medicare Care Teams It Administrative Assistant Relationship Specialty Start Date End Date Julissa Dooley MD [address] [place] [address] PCP - General 10/31/20
== END 2025-08-13 10:10 | disposition home or self-care (01) ==
LOC: HO.HMCC 09:40
PROVIDERS: PCP Internal Medicine; Visit Provider Internal Medicine
DX: Z00.01 Encounter for general adult medical examination with abnormal findings (principal); N18.4 Chronic kidney disease, stage 4 (severe); I48.11 Longstanding persistent atrial fibrillation; I42.8 Other cardiomyopathies; E66.01 Morbid (severe) obesity due to excess calories; Z68.41 Body mass index [BMI] 40.0-44.9, adult; E78.9 Disorder of lipoprotein metabolism, unspecified